=== PATIENT | female | born 1945 | race Caucasian/White ===

== ENCOUNTER 2017-04-11 07:07 | Emergency (ER) | payer MEDICARE ==
[~2017-04-11] VITALS: Ht 152.4 cm; Wt 70.0 kg
[~2017-04-11 07:07] MED LIST: FURO40TA OR; K-TA10TA5 PO; MEVA40TA PO; MONT10 PO; OCUVTAB PO; OMEP20CA5 PO; OMEP20TA OR; PRED5TAB PO; PROM25SU8 PO
[2017-04-11 07:10] VITALS: BP 139/90; PULSE 113; RESP 18; TEMP 98.1; O2SAT 92
[2017-04-11] MEDS ORDERED: LOVA40TA PO (07:34)
[2017-04-11] MEDS ORDERED: TRAM50TA PO (07:34)
[2017-04-11] MEDS ORDERED: LISI-519 PO (07:34)
[2017-04-11] MEDS ORDERED: FURO1TAB62 PO (07:34)
[2017-04-11] MEDS ORDERED: K-TA10TA PO (07:34)
[2017-04-11] MEDS ORDERED: MONT10TA4 PO (07:34)
[2017-04-11] MEDS ORDERED: PRED10 PO (07:34)
[2017-04-11] MEDS ORDERED: CHOL1CAP14 PO (07:34)
[2017-04-11] MEDS ORDERED: RANI300T PO (07:34)
[2017-04-11] MEDS ORDERED: ALBU0.63 NEB (07:34)
[2017-04-11 07:45] VITALS: O2SAT 95
[2017-04-11] MEDS ORDERED: SODIUM CHLORIDE 0.9% FLUSH 10 ML FLUSH IV FLUSH PRN (07:45)
[2017-04-11 07:50] LABS: AUTOMATED NEUTROPHIL # 9.2 TH/MM3 (1.8-7.7); BASOPHIL # 0.1 TH/MM3 (0-0.2); BASOPHIL % 0.6 % (0.0-2.0); EOSINOPHIL # 0.3 TH/MM3 (0-0.4); EOSINOPHIL % 2.3 % (0.0-4.0); HEMATOCRIT 42.6 % (35.0-46.0); LYMPH % 6.9 % (9.0-44.0); LYMPHOCYTE # 0.8 TH/MM3 (1.0-4.8); MEAN CELL VOLUME 84.6 FL (80.0-100.0); MEAN CORPUSCULAR HEMOGLOBIN 27.9 PG (27.0-34.0); MONO % 6.5 % (0.0-8.0); NEUT % 83.7 % (16.0-70.0); PLATELET COUNT 302 TH/MM3 (150-450); RED BLOOD COUNT 5.04 MIL/MM3 (4.00-5.30); RED CELL DISTRIBUTION WIDTH 15.6 % (11.6-17.2); WHITE BLOOD COUNT 11.1 TH/MM3 (4.0-11.0)
[2017-04-11 07:52] LABS: HEMO FLAGS DIFF FINAL
[2017-04-11 07:58] LABS: CHLORIDE 107 MEQ/L (98-107); POTASSIUM 4.1 MEQ/L (3.5-5.1); SODIUM (NA) 143 MEQ/L (136-145)
[2017-04-11 08:01] LABS: ANION GAP 4 MEQ/L (5-15)
[2017-04-11 08:02] LABS: APTT (PATIENT) 27.3 SEC (24.3-30.1); BLOOD UREA NITROGEN 16 MG/DL (7-18); PROTHROMBIN TIME - PATIENT 10.5 SEC (9.8-11.6)
[2017-04-11 08:04] LABS: ALT (GPT) 22 U/L (10-53); AST (GOT) 22 U/L (15-37); GLOMERULAR FILTRATION RATE 62 ML/MIN (>89)
[2017-04-11 08:06] LABS: TOTAL BILIRUBIN ADULT 0.3 MG/DL (0.2-1.0)
[2017-04-11 08:07] LABS: ALKALINE PHOSPHATASE 70 U/L (45-117)
--- NOTE | 2017-04-11 08:11 | PD ---
HPI Chief Complaint: GI Complaint Time Seen by Provider: 07:38 Travel History International Travel<30 days: No Contact w/Intl Traveler<30days: No Traveled to known affect area: No History of Present Illness HPI 72 year old female presenting with three episodes of rectal bleeding that started about 6 hours ago. She felt the urge to have a bowel movement this morning and passed bright red blood into the bowl without passing any stool. Associated symptoms include lower abdominal cramping. She denies light headedness, fever, chills, nausea, vomiting, dysuria, hematuria, and difficulty breathing beyond her baseline. She states that she has been diagnosed with diverticulosis and does have hemorrhoids but has never had abdominal surgery or diverticulitis. She is not taking any anticoagulants but is taking steroids for sarcoidosis. PFSH Past Medical History Hx Anticoagulant Therapy: No Arthritis: Yes Autoimmune Disease: Yes (SARCOIDOSIS) Cancer: No Cardiovascular Problems: Yes (HTN) High Cholesterol: Yes Diabetes: No Diminished Hearing: No Endocrine: No GERD: Yes Genitourinary: No Hepatitis: No Hiatal Hernia: No Hypertension: Yes Immune Disorder: No Medical other: Yes (HX OF BLEEDING ULCER; BILATERAL KNEE PAIN) Neurologic: No Reproductive: No Respiratory: Yes (CHRONIC LUNG ISSUES O2 DEPENDANT) Thyroid Disease: No Tetanus Vaccination: > 5 Years Influenza Vaccination: Yes ?: Not Menopausal: Yes Past Surgical History Abdominal Surgery: No Cardiac Surgery: No Ear Surgery: No Endocrine Surgery: No Eye Surgery: Yes (left eye cataract removal) Genitourinary Surgery: Yes (ANAL FISSURE 1993) Gynecologic Surgery: No Oral Surgery: Yes (TONSILECTOMY 1955) Pacemaker: No Thoracic Surgery: Yes (LUNG BIOPSY 1993) Tonsillectomy: Yes Other Surgery: Yes Social History Alcohol Use: Yes (RARE) Tobacco Use: No Substance Use: No Allergies-Medications (Allergen,Severity, Reaction): Coded Allergies: No Known Allergies (Verified , 04/11/17) Reported Meds & Prescriptions Reported Meds & Active Scripts Active Bentyl (Dicyclomine HCl) 10 Mg Cap 10 Mg PO BID PRN Reported Ranitidine (Ranitidine HCl) 300 Mg Tab 300 Mg PO DAILY D3 Maximum Strength (Cholecalciferol) 5,000 Unit Cap 1,000 Units PO DAILY Lovastatin 40 Mg Tab 40 Mg PO DAILY Lisinopril 5 Mg Tab 5 Mg PO DAILY Lasix (Furosemide) 20 Mg Tab 20 Mg PO DAILY Montelukast (Montelukast Sodium) 10 Mg Tab 10 Mg PO HS Tramadol (Tramadol HCl) 50 Mg Tab 50 Mg PO Q6H PRN Prednisone 10 Mg Tab 10 Mg PO EVERY OTHER DAY K-Tab (Potassium Chloride) 10 Meq Tab 10 Meq PO DAILY Albuterol Neb (Albuterol Sulfate) 0.63 Mg/3 Ml Neb 0.63 Mg NEB QID NEB PRN Review of Systems Except as stated in HPI: all other systems reviewed are Neg General / Constitutional: No: Fever, Chills Respiratory: No: Cough, Shortness of Breath Gastrointestinal: Positive: Abdominal Pain (abdominal cramping), Hematochezia, No: Nausea, Vomiting, Diarrhea Genitourinary: No: Urgency, Frequency, Dysuria, Hematuria Musculoskeletal: No: Myalgias Neurologic: No: Weakness, Dizziness, Syncope Physical Exam Narrative GENERAL: Well nourished, well developed. Sitting comfortably in bed. SKIN: Warm and dry. HEAD: Atraumatic. Normocephalic. EYES: Pupils equal and round. No scleral icterus. No injection or drainage. ENT: No nasal bleeding or discharge. Mucous membranes pink and moist. NECK: Trachea midline. No JVD. CARDIOVASCULAR: Tachycardic. Regular rhythm. RESPIRATORY: No accessory muscle use. Breathing comfortably. Bilateral wheezes on auscultation. Breath sounds equal bilaterally. GASTROINTESTINAL: Abdomen soft, non-tender, nondistended. Hepatic and splenic margins not palpable. RECTAL exam: There is some minimal blood mixed with mucus. She has an isolated hemorrhoid which is nonthrombosed and the 7 o'clock position, pea-sized. Nontender. No active bleeding from the hemorrhoid. No rectal fissure felt. MUSCULOSKELETAL: Extremities without clubbing, cyanosis, or edema. No obvious deformities. NEUROLOGICAL: Awake and alert. No obvious cranial nerve deficits. Motor grossly within normal limits. Five out of 5 muscle strength in the arms and legs. Normal speech. PSYCHIATRIC: Appropriate mood and affect; insight and judgment normal. Data Data Last Documented VS Vital Signs Date Time Temp Pulse Resp B/P Pulse Ox O2 Delivery O2 Flow Rate FiO2 04/11/17 08:35 108 18 170/101 95 Nasal Cannula 3.5 04/11/17 07:10 98.1 Orders Complete Blood Count With Diff (04/11/17 07:38) Comprehensive Metabolic Panel (04/11/17 07:38) Lipase (04/11/17 07:38) Prothrombin Time / Inr (Pt) (04/11/17 07:38) Act Partial Throm Time (Ptt) (04/11/17 07:38) Iv Access Insert/Monitor (04/11/17 07:38) Ecg Monitoring (04/11/17 07:38) Oximetry (04/11/17 07:38) Sodium Chloride 0.9% Flush (Ns Flush) (04/11/17 07:45) Labs Laboratory Tests Test 04/11/17 07:45 White Blood Count 11.1 TH/MM3 Red Blood Count 5.04 MIL/MM3 Hemoglobin 14.1 GM/DL Hematocrit 42.6 % Mean Corpuscular Volume 84.6 FL Mean Corpuscular Hemoglobin 27.9 PG Mean Corpuscular Hemoglobin 33.0 % Concent Red Cell Distribution Width 15.6 % Platelet Count 302 TH/MM3 Mean Platelet Volume 8.1 FL Neutrophils (%) (Auto) 83.7 % Lymphocytes (%) (Auto) 6.9 % Monocytes (%) (Auto) 6.5 % Eosinophils (%) (Auto) 2.3 % Basophils (%) (Auto) 0.6 % Neutrophils # (Auto) 9.2 TH/MM3 Lymphocytes # (Auto) 0.8 TH/MM3 Monocytes # (Auto) 0.7 TH/MM3 Eosinophils # (Auto) 0.3 TH/MM3 Basophils # (Auto) 0.1 TH/MM3 CBC Comment DIFF FINAL Differential Comment Prothrombin Time 10.5 SEC Prothromb Time International 1.0 RATIO Ratio Activated Partial 27.3 SEC Thromboplast Time Sodium Level 143 MEQ/L Potassium Level 4.1 MEQ/L Chloride Level 107 MEQ/L Carbon Dioxide Level 32.0 MEQ/L Anion Gap 4 MEQ/L Blood Urea Nitrogen 16 MG/DL Creatinine 0.89 MG/DL Estimat Glomerular Filtration 62 ML/MIN Rate Random Glucose 115 MG/DL Calcium Level 9.7 MG/DL Total Bilirubin 0.3 MG/DL Aspartate Amino Transf 22 U/L (AST/SGOT) Alanine Aminotransferase 22 U/L (ALT/SGPT) Alkaline Phosphatase 70 U/L Total Protein 7.5 GM/DL Albumin 3.4 GM/DL Lipase 97 U/L [facility] Medical Decision Making Medical Screen Exam Complete: Yes Emergency Medical Condition: Yes Differential Diagnosis Diverticular bleed Angiodysplasia Bleeding hemorrhoid Malignancy Narrative Course Patient roomed emergency department, on oxygen appears comfortable. Hemoglobin returns at 14, other labs are reassuring. Discussed with the patient that given internal nature of her bleeding is difficult to quantify how much she is bleeding, she was offered observation to the hospital for consideration of GI consult and colonoscopy. Patient states last time she had a colonoscopy she thought she would never have another one again. Discussed with her that this is certainly her prerogative. She also consider following up outpatient with GI. She is calm and collected very pleasant and she states that she would rather follow up outpatient. Discussed return to ED criteria symptomatic management home. She stable for discharge. Diagnosis Primary Impression: GI bleed Qualified Code: K62.5 - Gastrointestinal hemorrhage associated with anorectal source Med/Other Pt SpecificInfo: Prescription(s) given Scripts Dicyclomine (Bentyl)10 Mg Cap10 Mg PO BID PRN (ABDOMINAL CRAMPING) #20 CAP Ref 0 Prov:Yared Guerin MD 04/11/17 Disposition: 01 DISCHARGE HOME Condition: Stable Yared Guerin MD Apr 11, 2017 08:11
[2017-04-11 08:35] VITALS: BP 170/101; PULSE 108; RESP 18; O2SAT 95
[2017-04-11] MEDS ORDERED: DICY10 PO (08:38)
[2017-04-11] MEDS ORDERED: ZOFR4TAB3 SL (23:20)
== END 2017-04-11 08:59 | disposition home or self-care (01) ==
LOC: PHED 07:07
DX: K62.5 Hemorrhage of anus and rectum (principal); R10.30 Lower abdominal pain, unspecified; I10 Essential (primary) hypertension; E78.00 Pure hypercholesterolemia, unspecified; Z87.19 Personal history of other diseases of the digestive system; Z87.39 Personal history of other diseases of the musculoskeletal system and connective tissue; Z86.2 Personal history of diseases of the blood and blood-forming organs and certain disorders involving the immune mechanism; Z86.79 Personal history of other diseases of the circulatory system; Z87.09 Personal history of other diseases of the respiratory system; D86.9 Sarcoidosis, unspecified; R11.2 Nausea with vomiting, unspecified; R10.32 Left lower quadrant pain; R10.13 Epigastric pain; R00.0 Tachycardia, unspecified; E78.5 Hyperlipidemia, unspecified; Z99.81 Dependence on supplemental oxygen
CPT/HCPCS: 71020; 74177; 80048; 80053; 81001; 83690; 85025; 85610; 85730; 96361; 96374; 96375; 99284; 99285; C9113; J2405; J7040; Q9967

== ENCOUNTER 2017-04-11 18:43 | Emergency (ER) | payer MEDICARE ==
[~2017-04-11] VITALS: Ht 152.4 cm; Wt 78.0 kg
[~2017-04-11 18:43] MED LIST changes: +ALBU0.63 NEB; +CHOL1CAP14 PO; +DICY10 PO; +FURO1TAB62 PO; +K-TA10TA PO; +LISI-519 PO; +LOVA40TA PO; +MONT10TA4 PO; +PRED10 PO; +RANI300T PO; +TRAM50TA PO
[2017-04-11 18:52] VITALS: BP 151/77; PULSE 116; RESP 18; TEMP 98.1; O2SAT 93
[2017-04-11 19:20] VITALS: BP 144/87; PULSE 98; RESP 18; O2SAT 95
[2017-04-11 19:25] VITALS: O2SAT 95
--- NOTE | 2017-04-11 19:44 | PD ---
HPI Chief Complaint: Abdominal Pain Time Seen by Provider: 19:31 Travel History International Travel<30 days: No Contact w/Intl Traveler<30days: No Traveled to known affect area: No History of Present Illness HPI 72-year-old female presents to the emergency department for complaint of frequent episodes of mucoid rectal bleeding. Patient states symptoms began last evening. Patient has noted some left lower quadrant abdominal discomfort and epigastric abdominal discomfort since last evening. Patient denies fever or chills. Patient states that she has had some passage of bright red blood into the toilet without the passage of stool. Discomfort in her abdomen is described as a cramping. There is been no lightheadedness dizziness near- syncope or syncope. Patient's had ongoing nausea with poor oral intake. Patient was seen earlier in the emergency department for rectal bleeding but was felt to be stable for outpatient management returns this time because she has had an episode of vomiting. No bilious emesis no coffee-ground emesis no hematemesis. Patient has been diagnosed with a history of diverticulosis and hemorrhoids in the past. Patient has had attempted colonoscopy by her balance wheel screw hole tapper in the past but was unable to be performed successfully. Patient is followed by Dr. Jerel lara with her balance wheel screw hole tapper and followed by Dr. Edgardo Bell is her primary care provider. Patient denies taking any blood thinning agents. Patient is on chronic steroid therapy for history of sarcoidosis. Patient denies any recent antibiotic use. Current discomfort is 6 -8/10 in intensity. Patient has chronic shortness of breath and is on chronic supplemental oxygen at all times. No increased shortness of breath no chest pain no flank pain. No urinary symptoms. PFSH Past Medical History Narrative Medical Arthritis, sarcoidosis, hypertension, dyslipidemia, GERD, diverticulosis, peptic ulcer disease, left eye cataract surgery anal fissure repair tonsillectomy lung biopsy no tobacco use; nursing notes reviewed Hx Anticoagulant Therapy: No Arthritis: Yes Autoimmune Disease: Yes (SARCOIDOSIS) Cancer: No Cardiovascular Problems: Yes (HTN) High Cholesterol: Yes Diabetes: No Diminished Hearing: No Endocrine: No GERD: Yes Genitourinary: No Hepatitis: No Hiatal Hernia: No Hypertension: Yes Immune Disorder: No Medical other: Yes (HX OF BLEEDING ULCER; BILATERAL KNEE PAIN) Neurologic: No Reproductive: No Respiratory: Yes (CHRONIC LUNG ISSUES O2 DEPENDANT) Thyroid Disease: No Tetanus Vaccination: Unknown Influenza Vaccination: Yes Menopausal: Yes Past Surgical History Abdominal Surgery: No Cardiac Surgery: No Ear Surgery: No Endocrine Surgery: No Eye Surgery: Yes (left eye cataract removal) Genitourinary Surgery: Yes (ANAL FISSURE 1993) Gynecologic Surgery: No Oral Surgery: Yes (TONSILECTOMY 1955) Pacemaker: No Thoracic Surgery: Yes (LUNG BIOPSY 1993) Tonsillectomy: Yes Other Surgery: Yes Social History Alcohol Use: Yes (RARE) Tobacco Use: No Substance Use: No Allergies-Medications (Allergen,Severity, Reaction): Coded Allergies: No Known Allergies (Verified , 04/11/17) Reported Meds & Prescriptions Reported Meds & Active Scripts Active Zofran Odt (Ondansetron Odt) 4 Mg Tab 4 Mg SL Q6HR PRN Bentyl (Dicyclomine HCl) 10 Mg Cap 10 Mg PO BID PRN Reported Ranitidine (Ranitidine HCl) 300 Mg Tab 300 Mg PO DAILY D3 Maximum Strength (Cholecalciferol) 5,000 Unit Cap 1,000 Units PO DAILY Lovastatin 40 Mg Tab 40 Mg PO DAILY Lisinopril 5 Mg Tab 5 Mg PO DAILY Lasix (Furosemide) 20 Mg Tab 20 Mg PO DAILY Montelukast (Montelukast Sodium) 10 Mg Tab 10 Mg PO HS Tramadol (Tramadol HCl) 50 Mg Tab 50 Mg PO Q6H PRN Prednisone 10 Mg Tab 10 Mg PO EVERY OTHER DAY K-Tab (Potassium Chloride) 10 Meq Tab 10 Meq PO DAILY Albuterol Neb (Albuterol Sulfate) 0.63 Mg/3 Ml Neb 0.63 Mg NEB QID NEB PRN Review of Systems Except as stated in HPI: all other systems reviewed are Neg General / Constitutional: No: Fever, Chills HENT: No: Congestion Cardiovascular: No: Chest Pain or Discomfort Respiratory: Positive: Wheezing, No: Shortness of Breath Gastrointestinal: Positive: Nausea, Vomiting, Diarrhea, Abdominal Pain, Hematochezia, Loss of Appetite, No: Hematemesis Genitourinary: No: Urgency, Frequency, Dysuria, Decreased Urinary Output Musculoskeletal: No: Pain Skin: No Rash Neurologic: No: Weakness Psychiatric: No: Anxiety Hematologic/Lymphatic: No: Lymph Node Enlargement Physical Exam Narrative GENERAL: Well-developed well-nourished obese female in no acute distress no respiratory distress SKIN: Warm and dry. HEAD: Normocephalic. EYES: No scleral icterus. No injection or drainage. NECK: Supple, trachea midline. No JVD or lymphadenopathy. CARDIOVASCULAR: Regular rate and rhythm without murmurs, gallops, or rubs. RESPIRATORY: Breath sounds equal bilaterally with few expiratory wheezes. No accessory muscle use. GASTROINTESTINAL: Abdomen soft, minimal diffuse tenderness to palpation without guarding or rebound, nondistended. Rectal exam: Deferred as reportedly performed earlier and was reportedly positive for blood on previous exam earlier today. MUSCULOSKELETAL: No cyanosis, or edema. BACK: Nontender without obvious deformity. No CVA tenderness. Data Data Last Documented VS Vital Signs Date Time Temp Pulse Resp B/P Pulse Ox O2 Delivery O2 Flow Rate FiO2 04/11/17 19:25 95 Nasal Cannula 3.5 04/11/17 19:20 98 18 144/87 04/11/17 18:52 98.1 Orders Basic Metabolic Panel (Bmp) (04/11/17 19:31) Complete Blood Count With Diff (04/11/17 19:31) Urinalysis - C+S If Indicated (04/11/17 19:31) Ct Abd/Pel W Iv Contrast(Rout) (04/11/17 19:31) Iv Access Insert/Monitor (04/11/17 19:31) Ecg Monitoring (04/11/17 19:31) Oximetry (04/11/17 19:31) Ondansetron Inj (Zofran Inj) (04/11/17 19:45) Sodium Chlorid 0.9% 500 Ml Inj (Ns 500 M (04/11/17 19:45) Pantoprazole Inj (Protonix Inj) (04/11/17 19:45) Iohexol 350 Inj (Omnipaque 350 Inj) (04/11/17 20:55) Chest, Pa & Lat (04/11/17 ) Labs Laboratory Tests Test 04/11/17 04/11/17 20:00 20:01 White Blood Count 13.3 TH/MM3 Red Blood Count 4.86 MIL/MM3 Hemoglobin 13.5 GM/DL Hematocrit 40.9 % Mean Corpuscular Volume 84.1 FL Mean Corpuscular Hemoglobin 27.8 PG Mean Corpuscular Hemoglobin 33.1 % Concent Red Cell Distribution Width 15.5 % Platelet Count 287 TH/MM3 Mean Platelet Volume 8.9 FL Neutrophils (%) (Auto) 87.1 % Lymphocytes (%) (Auto) 4.1 % Monocytes (%) (Auto) 5.0 % Eosinophils (%) (Auto) 0.0 % Basophils (%) (Auto) 3.8 % Neutrophils # (Auto) 11.6 TH/MM3 Lymphocytes # (Auto) 0.5 TH/MM3 Monocytes # (Auto) 0.7 TH/MM3 Eosinophils # (Auto) 0.0 TH/MM3 Basophils # (Auto) 0.5 TH/MM3 CBC Comment DIFF FINAL Differential Comment Sodium Level 142 MEQ/L Potassium Level 4.2 MEQ/L Chloride Level 106 MEQ/L Carbon Dioxide Level 29.0 MEQ/L Anion Gap 7 MEQ/L Blood Urea Nitrogen 11 MG/DL Creatinine 0.76 MG/DL Estimat Glomerular Filtration 75 ML/MIN Rate Random Glucose 115 MG/DL Calcium Level 10.0 MG/DL Urine Color YELLOW Urine Turbidity CLEAR Urine pH 6.0 Urine Specific [place] 1.026 Urine Protein 30 mg/dL Urine Glucose (UA) NEG mg/dL Urine Ketones 80 OR GREATER mg/dL Urine Occult Blood NEG Urine Nitrite NEG Urine Bilirubin NEG Urine Leukocyte Esterase NEG Urine RBC 0-3 /hpf Urine WBC 0-2 /hpf Urine Squamous Epithelial 0-5 /hpf Cells Urine Hyaline Casts 3-5 /lpf Urine Mucus OCC /lpf Microscopic Urinalysis Comment CULT NOT INDICATED MDM Medical Decision Making Medical Screen Exam Complete: Yes Emergency Medical Condition: Yes Medical Record Reviewed: Yes Interpretation(s) Last Impressions Abdomen/Pelvis CT 04/11/171930 Signed Impressions: Service Date/Time: Tuesday, April 11, 2017 20:33 - CONCLUSION: 1. Diverticulosis without diverticulitis. 2. Large hernia in the left flank containing peritoneal fat, small and large bowel loops. No signs of obstruction or attenuation. 3. Right renal cyst. 4. Right lower lobe consolidation. PA and lateral views of the chest are recommended. Mike Lara MD CBC & BMP Diagram 04/11/17 20:00 Vital Signs Date Time Temp Pulse Resp B/P Pulse Ox O2 Delivery O2 Flow Rate FiO2 04/11/17 19:25 95 Nasal Cannula 3.5 04/11/17 19:20 98 18 144/87 95 Nasal Cannula 3.5 04/11/17 18:52 98.1 116 18 151/77 93 Nasal Cannula 3.5 Differential Diagnosis Upper GI bleed, lower GI bleed, diverticulitis, colitis, AVM, angiodysplasia, hemorrhoid, malignancy, anemia Narrative Course 72-year-old female seen earlier today for diagnosis of GI bleed of uncertain source returns because of ongoing blood per rectum as well as episode of vomiting with ongoing nausea poor oral intake and worsening abdominal discomfort. Patient earlier underwent rectal exam which reportedly was positive for blood. Patient had stable hemoglobin of 14@earlier visit. Patient presents with tachycardia that was noted earlier but reportedly has a history of chronic mild tachycardia. A repeat hemoglobin will send patient for CT abdomen and pelvis plan: patient will require admission for persistent GI bleed. Patient informed of imaging results in stable hemoglobin; patient has had no further nausea or vomiting after Zofran no discomfort after Protonix and no further episodes of bloody or mucoid rectal bleeding. Patient is desirous of being discharged to home. Patient's imaging study reveals no acute intra- abdominal or pelvic process has diverticulosis and previous hernia unchanged. Patient able to tolerate oral hydration. Patient remains stable and again requests being discharged to home. Extensive conversation with patient and spouse is aware of need to return to the emergency department should she have another episode of red blood per rectum dizziness shortness of breath or any concerns; patient's spouse acknowledge understanding of recommendations associated with discharged to home. Patient given prescription for Zofran is aware that her primary care provider Dr. Edgardo Bell wants to see her in the office tomorrow and that at prescription through her primary will be provided for Protonix. Physician Communication Physician Communication discussed with Dr Newsome; discussed with DR Tellez Diagnosis Primary Impression: GI bleed Additional Impression: Sarcoidosis Referrals: Nicole Newsome MD call for appointment Alison Tellez MD call for appointment call office in the AM per Dr Tellez Patient Instructions: General Instructions Additional Instructions: Recommend clear liquid diet for next 12-24 hours advance as tolerated to bland diet then regular diet as tolerated Follow-up with Dr. Beltrán to your gastrologist Follow-up with Dr. Garcia her primary care provider Recommend use of Zofran prescribed as needed for nausea and/or vomiting Return to the emergency department for any concerns or change in condition Continue chronic medications as presently prescribed Med/Other Pt SpecificInfo: Prescription(s) given Scripts Ondansetron Odt (Zofran Odt)4 Mg Tab4 Mg SL Q6HR PRN (Nausea/Vomiting) #10 TAB Ref 0 Prov:Zulay Green MD 04/11/17 Disposition: 01 DISCHARGE HOME Condition: Stable Zulay Green MD Apr 11, 2017 19:44
[2017-04-11] MEDS ORDERED: ONDANSETRON HCL 4 MG/2 ML VIAL IVP ONE (19:45)
[2017-04-11] MEDS ORDERED: PANTOPRAZOLE SODIUM 40 MG VIAL IV PUSH ONE (19:45)
[2017-04-11] MEDS ORDERED: SODIUM CHLORID 0.9% 500 ML INJ 500 ML IV ONE (19:45)
[2017-04-11 20:28] LABS: BLOOD, URINE NEG (NEG); GLUCOSE,URINE NEG (NEG); NITRITE,URINE NEG (NEG)
[2017-04-11 20:29] LABS: AUTOMATED NEUTROPHIL # 11.6 TH/MM3 (1.8-7.7); BASOPHIL # 0.5 TH/MM3 (0-0.2); BASOPHIL % 3.8 % (0.0-2.0); HEMATOCRIT 40.9 % (35.0-46.0); HEMO FLAGS DIFF FINAL; LYMPH % 4.1 % (9.0-44.0); LYMPHOCYTE # 0.5 TH/MM3 (1.0-4.8); MEAN CELL VOLUME 84.1 FL (80.0-100.0); MEAN CORPUSCULAR HEMOGLOBIN 27.8 PG (27.0-34.0); MEAN CORPUSCULAR HGB CONC 33.1 % (32.0-36.0); NEUT % 87.1 % (16.0-70.0); PLATELET COUNT 287 TH/MM3 (150-450); RED BLOOD COUNT 4.86 MIL/MM3 (4.00-5.30); RED CELL DISTRIBUTION WIDTH 15.5 % (11.6-17.2); WHITE BLOOD COUNT 13.3 TH/MM3 (4.0-11.0)
[2017-04-11 20:30] VITALS: BP 146/82; PULSE 101; RESP 19; O2SAT 96
[2017-04-11 20:39] LABS: POTASSIUM 4.2 MEQ/L (3.5-5.1)
[2017-04-11 20:42] LABS: KETONE, URINE 80 OR GREATER mg/dL (NEG)
[2017-04-11 20:43] LABS: URINE COLOR YELLOW (YELLW/STRAW)
[2017-04-11 20:44] LABS: MUCUS URINE OCC /lpf (OCC); SQUAMOUS EPITHELIAL CELL URINE 0-5 /hpf (0-5)
[2017-04-11 20:45] LABS: COMMENT (UR) CULT NOT INDICATED; CULTURE IF INDICATED CULT NOT INDICATED; RBC, URINE 0-3 /hpf (0-3); WBC, URINE 0-2 /hpf (0-5)
[2017-04-11] MEDS ORDERED: IOHEXOL 350 MG/ML 10 ML VIAL (for RAD DIAG) IV ONE (20:55)
--- NOTE | 2017-04-11 21:05 | RADRPT ---
EXAM DATE/TIME: 04/11/2017 20:33 [facility] COMPARISON: No previous studies available for comparison. INDICATIONS : Epigastric and left lowe quadrant pain. Rectal bleeding. IV CONTRAST: 100 cc Omnipaque 350 (iohexol) IV ORAL CONTRAST: No oral contrast ingested. RADIATION DOSE: 17.63 CTDIvol (mGy) MEDICAL HISTORY : Gastroesophageal reflux disease. Hypertension. Respiratory disease. History of anal fissure. SURGICAL HISTORY : None. ENCOUNTER: Initial ACUITY: 3 days PAIN SCALE: 8/10 LOCATION: Left lower quadrant epigastric. TECHNIQUE: Volumetric scanning of the abdomen and pelvis was performed. Using automated exposure control and ad justment of the mA and/or kV according to patient size, radiation dose was kept as low as reasonably achievable to obtain optimal diagnostic quality images. DICOM format image data is available electro nically for review and comparison. FINDINGS: LOWER LUNGS: The visualized lower lungs are clear. LIVER: Homogeneous density without lesion. There is no dilation of the biliary tree. No calcified gallston es. SPLEEN: Normal size without lesion. PANCREAS: Within normal limits. KIDNEYS: Normal in size and shape. There is no mass, stone or hydronephrosis. Right renal low-density. ADRENAL GLANDS: Within normal limits. VASCULAR: There is no aortic aneurysm. BOWEL/MESENTERY: Due to cysts without diverticulitis. There is no free intraperitoneal air or fluid. ABDOMINAL WALL: There is hernia posteriorly in the left flank just below the level of the left kidney containing desc ending colon, small bowel loops and retroperitoneal fat. RETROPERITONEUM: There is no lymphadenopathy. BLADDER: No wall thickening or mass. REPRODUCTIVE: Within normal limits. INGUINAL: There is no lymphadenopathy or hernia. MUSCULOSKELETAL: Within normal limits for patient age. CONCLUSION: 1. Diverticulosis without diverticulitis. 2. Large hernia in the left flank containing peritoneal fat, small and large bowel loops. No signs of obstruction or attenuation. 3. Right renal cyst. 4. Right lower lobe consolidation. PA and lateral views of the chest are recommended. Mike Lara MD on April 11, 2017 at 21:01 Board Certified Radiologist. This report was verified electronically.
[2017-04-11 22:10] VITALS: BP 107/66; PULSE 99; RESP 19; O2SAT 96
--- NOTE | 2017-04-11 23:14 | RADRPT ---
EXAM DATE/TIME: 04/11/2017 22:42 [facility] COMPARISON: CT ABDOMEN & PELVIS W CONTRAST, April 11, 2017, 20:33. CHEST SINGLE AP, October 09, 2013, 5:08. INDICATIONS : Shortness of breath. MEDICAL HISTORY : Hypertension. Respiratory disease. SURGICAL HISTORY : None. ENCOUNTER: Initial ACUITY: 1 day PAIN SCORE: 0/10 LOCATION: Bilateral chest FINDINGS: Frontal and lateral views of the chest demonstrate cardiac silhouette size at the upper limits for no rmal. There are abnormal perihilar and lower lung zone interstitial and airspace opacities bilaterall y in a symmetric distribution. No pneumothorax is visualized. No pleural effusion is appreciated. The re are calcified nodules at the left lung base. Bones and soft tissues demonstrate no acute finding. There is colon gas displaced into the left lateral soft tissues the. Recent CT documented a hernia in this location. CONCLUSION: Chronic and mildly increased perihilar and lower lung zone interstitial and airspace opacities bilate rally. These findings could represent pulmonary edema in the appropriate clinical setting. Given the appearance of the lung bases on the recent CT chronic interstitial process should also be considered. Lele Cooper MD on April 11, 2017 at 23:10 Board Certified Radiologist. This report was verified electronically.
[2017-04-11] MEDS ORDERED: ZOFR4TAB3 SL (23:20)
[2017-04-11 23:52] VITALS: BP 127/72
== END 2017-04-11 23:57 | disposition home or self-care (01) ==
LOC: PHED 18:43
DX: K62.5 Hemorrhage of anus and rectum (principal); D86.9 Sarcoidosis, unspecified; R11.2 Nausea with vomiting, unspecified; R10.32 Left lower quadrant pain; R10.13 Epigastric pain; R00.0 Tachycardia, unspecified; I10 Essential (primary) hypertension; E78.5 Hyperlipidemia, unspecified; Z99.81 Dependence on supplemental oxygen; Z87.39 Personal history of other diseases of the musculoskeletal system and connective tissue; Z86.2 Personal history of diseases of the blood and blood-forming organs and certain disorders involving the immune mechanism; Z87.19 Personal history of other diseases of the digestive system; Z86.79 Personal history of other diseases of the circulatory system; Z87.09 Personal history of other diseases of the respiratory system
CPT/HCPCS: 71020; 74177; 80048; 81001; 85025; 96361; 96374; 96375; 99285; C9113; J2405; J7040; Q9967

== ENCOUNTER 2018-01-23 17:20 | Emergency (ER) | payer MEDICARE ==
[2018-01-23] VITALS (12 sets, daily range): BP systolic 97–133; BP diastolic 55–75; PULSE 104–114; RESP 20–22; TEMP 98.9; O2SAT 80–96
[~2018-01-23 17:20] MED LIST changes: -CHOL1CAP14 PO; +D 50CAP2 PO; -FURO40TA OR; -K-TA10TA5 PO; -MEVA40TA PO; -MONT10 PO; -OCUVTAB PO; -OMEP20CA5 PO; -OMEP20TA OR; -PRED5TAB PO; -PROM25SU8 PO; +ZOFR4TAB3 SL
--- NOTE | 2018-01-23 17:57 | PD ---
HPI Chief Complaint: General Weakness Time Seen by Provider: 17:36 Travel History International Travel<30 days: No Contact w/Intl Traveler<30days: No Traveled to known affect area: No History of Present Illness HPI The patient 72. She reports coming to the ER because she was in her chair at home and was unable to get out of it due to both chronic knee pain and a new total body spasms type sensation. She has not had similar spasms before. In the ED there is no spasm activity. The patient does report some shortness of breath which is worse in the mornings and dyspnea on exertion however this is chronic. She has no chest pain, fever, nausea or vomiting. She reports a change in her albuterol inhaler dose recently however denies any Change in medication or lifestyle recently otherwise. PFSH Past Medical History Hx Anticoagulant Therapy: No Arthritis: Yes Autoimmune Disease: Yes (SARCOIDOSIS) Cancer: No Cardiovascular Problems: Yes (HTN) High Cholesterol: Yes Diabetes: No Diminished Hearing: No Endocrine: No GERD: Yes Genitourinary: No Hepatitis: No Hiatal Hernia: No Hypertension: Yes Immune Disorder: No Neurologic: No Reproductive: No Respiratory: Yes (CHRONIC LUNG ISSUES O2 DEPENDANT) Thyroid Disease: No ?: Not Menopausal: Yes Past Surgical History Abdominal Surgery: No Cardiac Surgery: No Ear Surgery: No Endocrine Surgery: No Eye Surgery: Yes (left eye cataract removal) Genitourinary Surgery: Yes (ANAL FISSURE 1993) Gynecologic Surgery: No Oral Surgery: Yes (TONSILECTOMY 1955) Pacemaker: No Thoracic Surgery: Yes (LUNG BIOPSY 1993) Tonsillectomy: Yes Other Surgery: Yes Social History Alcohol Use: Yes (RARE) Tobacco Use: No Substance Use: No Allergies-Medications (Allergen,Severity, Reaction): Coded Allergies: No Known Allergies (Verified Adverse Reaction, Unknown, 01/23/18) Reported Meds & Prescriptions Reported Meds & Active Scripts Active Reported Lovastatin 40 Mg Tab 40 Mg PO DAILY Lisinopril 5 Mg Tab 5 Mg PO DAILY Lasix (Furosemide) 20 Mg Tab 20 Mg PO DAILY Montelukast (Montelukast Sodium) 10 Mg Tab 10 Mg PO HS Tramadol (Tramadol HCl) 50 Mg Tab 50 Mg PO Q6H PRN Prednisone 10 Mg Tab 10 Mg PO EVERY OTHER DAY K-Tab (Potassium Chloride) 10 Meq Tab 10 Meq PO DAILY Albuterol Neb (Albuterol Sulfate) 0.63 Mg/3 Ml Neb 0.63 Mg NEB QID NEB PRN Review of Systems Except as stated in HPI: all other systems reviewed are Neg General / Constitutional: No: Fever Eyes: No: Diploplia Cardiovascular: No: Chest Pain or Discomfort, Diaphoresis Physical Exam Narrative GENERAL: 72 yo F, speaking sentences, mild distress Vital Signs Date Time Temp Pulse Resp B/P (MAP) Pulse Ox O2 Delivery O2 Flow Rate FiO2 01/23/18 17:22 98.9 112 20 132/73 (92) 90 SKIN: Warm and dry. HEAD: Atraumatic. Normocephalic. EYES: Pupils equal and round. No scleral icterus. No injection or drainage. ENT: No nasal bleeding or discharge. Mucous membranes pink and moist. NECK: Trachea midline. No JVD. CARDIOVASCULAR: Tachycardia. Regular rhythm. RESPIRATORY: No accessory muscle use. Clear to auscultation. Breath sounds equal bilaterally. GASTROINTESTINAL: Abdomen soft, non-tender, nondistended. Hepatic and splenic margins not palpable. MUSCULOSKELETAL: Extremities without clubbing, cyanosis, or edema. No obvious deformities. NEUROLOGICAL: Awake and alert. No obvious cranial nerve deficits. Motor grossly within normal limits. Five out of 5 muscle strength in the arms and legs. Normal speech. PSYCHIATRIC: Appropriate mood and affect; insight and judgment normal. Data Data Last Documented VS Vital Signs Date Time Temp Pulse Resp B/P (MAP) Pulse Ox O2 Delivery O2 Flow Rate FiO2 01/23/18 18:45 106 20 118/66 (83) 96 Nasal Cannula 5.00 01/23/18 17:22 98.9 Orders Orders Complete Blood Count With Diff (01/23/18 17:47) Comprehensive Metabolic Panel (01/23/18 17:47) Urinalysis - C+S If Indicated (01/23/18 17:47) Chest, Single Ap (01/23/18 17:47) Ecg Monitoring (01/23/18 17:47) Iv Access Insert/Monitor (01/23/18 17:47) Oximetry (01/23/18 17:47) Sodium Chloride 0.9% Flush (Ns Flush) (01/23/18 18:00) Arterial Blood Gas (Abg) (01/23/18 ) Electrocardiogram (01/23/18 ) Potassium, Serum (K) (01/23/18 21:57) Labs Laboratory Tests Test 01/23/18 18:20 White Blood Count 10.4 TH/MM3 Red Blood Count 4.70 MIL/MM3 Hemoglobin 13.1 GM/DL Hematocrit 41.8 % Mean Corpuscular Volume 88.9 FL Mean Corpuscular Hemoglobin 27.8 PG Mean Corpuscular Hemoglobin Concent 31.3 % Red Cell Distribution Width 14.5 % Platelet Count 292 TH/MM3 Mean Platelet Volume 9.5 FL Neutrophils (%) (Auto) 81.5 % Lymphocytes (%) (Auto) 5.8 % Monocytes (%) (Auto) 7.4 % Eosinophils (%) (Auto) 0.3 % Basophils (%) (Auto) 5.0 % Neutrophils # (Auto) 8.5 TH/MM3 Lymphocytes # (Auto) 0.6 TH/MM3 Monocytes # (Auto) 0.8 TH/MM3 Eosinophils # (Auto) 0.0 TH/MM3 Basophils # (Auto) 0.5 TH/MM3 CBC Comment DIFF FINAL Differential Comment Blood Urea Nitrogen 20 MG/DL Creatinine 0.77 MG/DL Random Glucose 106 MG/DL Total Protein 7.8 GM/DL Albumin 3.4 GM/DL Calcium Level 10.0 MG/DL Alkaline Phosphatase 79 U/L Aspartate Amino Transf (AST/SGOT) 35 U/L Alanine Aminotransferase (ALT/SGPT) 31 U/L Total Bilirubin 0.4 MG/DL Sodium Level 138 MEQ/L Potassium Level 5.4 MEQ/L Chloride Level 95 MEQ/L Carbon Dioxide Level 40.3 MEQ/L Anion Gap 3 MEQ/L Estimat Glomerular Filtration Rate 74 ML/MIN [facility] Medical Decision Making Medical Screen Exam Complete: Yes Emergency Medical Condition: Yes Medical Record Reviewed: Yes Differential Diagnosis electrolyte imbalance, anemia, UTI, polypharmacy Narrative Course CBC & BMP Diagram 01/23/18 18:20 Total Protein 7.8, Albumin 3.4, Calcium Level 10.0, Alkaline Phosphatase 79, Aspartate Amino Transf (AST/SGOT) 35, Alanine Aminotransferase (ALT/SGPT) 31, Total Bilirubin 0.4 Patient sitting upright in bed somewhat comfortably at 6:50 PM. The urinalysis is pending. There is a unexpected increasing carbon dioxide with a resultant 40s. An ABG was added on. The patient received Kayexalate and calcium. An EKG was added on. Case discussed with Dr. Velazquez to follow up and disposition patient. Med/Other Pt SpecificInfo: No Change to Meds Disposition: 01 DISCHARGE HOME Condition: Stable Bossman Olivas MD January 23, 2018 17:57
[2018-01-23] MEDS ORDERED: SODIUM CHLORIDE 0.9% FLUSH 10 ML FLUSH IV FLUSH PRN (18:00)
--- NOTE | 2018-01-23 18:06 | RADRPT ---
EXAM DATE/TIME: 01/23/2018 17:50 [facility] COMPARISON: CHEST PA & LAT, April 11, 2017, 22:42. INDICATIONS : Short of breath MEDICAL HISTORY : sarcoidosis SURGICAL HISTORY : None. ENCOUNTER: Initial ACUITY: 2 days PAIN SCORE: 0/10 LOCATION: Bilateral chest FINDINGS: Chronic or recurrent acute perihilar and bibasilar interstitial markings are noted. The heart is enla rged. CONCLUSION: Chronic or recurrent acute perihilar and bibasilar interstitial markings. Cardiomegaly. Yared Chavez MD on January 23, 2018 at 18:02 Board Certified Radiologist. This report was verified electronically.
[2018-01-23 18:39] LABS: AUTOMATED NEUTROPHIL # 8.5 TH/MM3 (1.8-7.7); BASOPHIL # 0.5 TH/MM3 (0-0.2); EOSINOPHIL % 0.3 % (0.0-4.0); HEMATOCRIT 41.8 % (35.0-46.0); HEMOGLOBIN 13.1 GM/DL (11.6-15.3); LYMPH % 5.8 % (9.0-44.0); LYMPHOCYTE # 0.6 TH/MM3 (1.0-4.8); MEAN CELL VOLUME 88.9 FL (80.0-100.0); MEAN CORPUSCULAR HEMOGLOBIN 27.8 PG (27.0-34.0); MEAN CORPUSCULAR HGB CONC 31.3 % (32.0-36.0); MEAN PLATELET VOLUME 9.5 FL (7.0-11.0); MONO % 7.4 % (0.0-8.0); MONOCYTE # 0.8 TH/MM3 (0-0.9); NEUT % 81.5 % (16.0-70.0); PLATELET COUNT 292 TH/MM3 (150-450); RED CELL DISTRIBUTION WIDTH 14.5 % (11.6-17.2); WHITE BLOOD COUNT 10.4 TH/MM3 (4.0-11.0)
[2018-01-23 18:40] LABS: CHLORIDE 95 MEQ/L (98-107); SODIUM (NA) 138 MEQ/L (136-145)
[2018-01-23 18:44] LABS: ALBUMIN 3.4 GM/DL (3.4-5.0); BICARBONATE 40.3 MEQ/L (21.0-32.0); BLOOD UREA NITROGEN 20 MG/DL (7-18); GLUCOSE,RANDOM 106 MG/DL (74-106)
[2018-01-23 18:47] LABS: ALT (GPT) 31 U/L (10-53); AST (GOT) 35 U/L (15-37); CREATININE 0.77 MG/DL (0.50-1.00); GLOMERULAR FILTRATION RATE 74 ML/MIN (>89)
[2018-01-23 18:49] LABS: TOTAL BILIRUBIN ADULT 0.4 MG/DL (0.2-1.0); TOTAL PROTEIN 7.8 GM/DL (6.4-8.2)
[2018-01-23 18:50] LABS: ALKALINE PHOSPHATASE 79 U/L (45-117)
[2018-01-23] MEDS ORDERED: CALCIUM GLUCONATE 10% 1 GM/10 ML VIAL SLOW IVP ONE (19:00)
[2018-01-23] MEDS ORDERED: SODIUM POLYSTYRENE SULFONATE SUSP 15 GM/60 ML CUP PO ONE (19:00)
[2018-01-23 19:30] LABS: BLOOD, URINE NEG (NEG); GLUCOSE,URINE NEG (NEG); KETONE, URINE NEG (NEG); NITRITE,URINE NEG (NEG); PH, URINE 5.5 (5.0-8.5); URINE COLOR YELLOW (YELLW/STRAW); URINE LEUKOCYTE ESTERASE NEG (NEG)
[2018-01-23] MEDS ORDERED: FUROSEMIDE 100 MG/10 ML VIAL IV PUSH ONE (19:30)
[2018-01-23 19:35] LABS: BILIRUBIN, URINE NEG (NEG); RBC, URINE 0-2 /hpf (0-3)
[2018-01-23] MEDS ORDERED: CALCIUM GLUCONATE INJ 1 GM in SODIUM CHLORIDE 0.9% INJ 100 ML IV ONE (19:45)
--- NOTE | 2018-01-23 20:30 | PD ---
Physical Exam Time Seen by Provider: 20:[address] Olivas left this patient with me to likely admit. Data Data Last Documented VS Vital Signs Date Time Temp Pulse Resp B/P (MAP) Pulse Ox O2 Delivery O2 Flow Rate FiO2 01/23/18 18:45 106 20 118/66 (83) 96 Nasal Cannula 5.00 01/23/18 17:22 98.9 Orders Orders Complete Blood Count With Diff (01/23/18 17:47) Comprehensive Metabolic Panel (01/23/18 17:47) Urinalysis - C+S If Indicated (01/23/18 17:47) Chest, Single Ap (01/23/18 17:47) Ecg Monitoring (01/23/18 17:47) Iv Access Insert/Monitor (01/23/18 17:47) Oximetry (01/23/18 17:47) Sodium Chloride 0.9% Flush (Ns Flush) (01/23/18 18:00) Arterial Blood Gas (Abg) (01/23/18 ) Electrocardiogram (01/23/18 ) Potassium, Serum (K) (01/23/18 21:57) Calcium Gluconate Inj (Calcium Gluconate (01/23/18 19:00) Sodium Polysty Sulfate Liq (Kayexalate L (01/23/18 19:00) Furosemide Inj (Lasix Inj) (01/23/18 19:30) Calcium Gluconate Inj (Calcium Gluconate (01/23/18 19:45) Code Status (01/23/18 20:30) B-Type Natriuretic Peptide (01/23/18 20:34) Labs Laboratory Tests Test 01/23/18 18:20 01/23/18 18:56 01/23/18 19:20 White Blood Count 10.4 TH/MM3 Red Blood Count 4.70 MIL/MM3 Hemoglobin 13.1 GM/DL Hematocrit 41.8 % Mean Corpuscular Volume 88.9 FL Mean Corpuscular Hemoglobin 27.8 PG Mean Corpuscular Hemoglobin Concent 31.3 % Red Cell Distribution Width 14.5 % Platelet Count 292 TH/MM3 Mean Platelet Volume 9.5 FL Neutrophils (%) (Auto) 81.5 % Lymphocytes (%) (Auto) 5.8 % Monocytes (%) (Auto) 7.4 % Eosinophils (%) (Auto) 0.3 % Basophils (%) (Auto) 5.0 % Neutrophils # (Auto) 8.5 TH/MM3 Lymphocytes # (Auto) 0.6 TH/MM3 Monocytes # (Auto) 0.8 TH/MM3 Eosinophils # (Auto) 0.0 TH/MM3 Basophils # (Auto) 0.5 TH/MM3 CBC Comment DIFF FINAL Differential Comment Blood Urea Nitrogen 20 MG/DL Creatinine 0.77 MG/DL Random Glucose 106 MG/DL Total Protein 7.8 GM/DL Albumin 3.4 GM/DL Calcium Level 10.0 MG/DL Alkaline Phosphatase 79 U/L Aspartate Amino Transf (AST/SGOT) 35 U/L Alanine Aminotransferase (ALT/SGPT) 31 U/L Total Bilirubin 0.4 MG/DL Sodium Level 138 MEQ/L Potassium Level 5.4 MEQ/L Chloride Level 95 MEQ/L Carbon Dioxide Level 40.3 MEQ/L Anion Gap 3 MEQ/L Estimat Glomerular Filtration Rate 74 ML/MIN Blood Gas Puncture Site RT RADIAL Blood Gas Patient Temperature 98.6 Blood Gas HCO3 43 mmol/L Blood Gas Base Excess 15.8 mmol/L Blood Gas Oxygen Saturation 92 % Arterial Blood pH 7.31 Arterial Blood Partial Pressure CO2 87 mmHG Arterial Blood Partial Pressure O2 72 mmHG Arterial Blood Oxygen Content 16.9 Vol % Arterial Blood Carboxyhemoglobin 1.5 % Arterial Blood Methemoglobin 1.2 % Blood Gas Hemoglobin 13.0 G/DL Oxygen Delivery Device NASAL CANNULA Blood Gas Liter Flow 5 L/M Urine Color YELLOW Urine Turbidity CLEAR Urine pH 5.5 Urine Specific [place] GREATER/EQUAL 1.030 Urine Protein 30 mg/dL Urine Glucose (UA) NEG mg/dL Urine Ketones NEG mg/dL Urine Occult Blood NEG Urine Nitrite NEG Urine Bilirubin NEG Urine Urobilinogen 0.2 MG/DL Urine Leukocyte Esterase NEG Urine RBC 0-2 /hpf Urine WBC 3-5 /hpf Urine Squamous Epithelial Cells 6-8 /hpf Urine Bacteria NONE /hpf Microscopic Urinalysis Comment CULT NOT INDICATED MDM Medical Record Reviewed: Yes Supervised Visit with EMELY: No Differential Diagnosis COPD with acute exacerbation, hypoxemia, hypercarbia, end-stage COPD, DNR status Narrative Course The patient tells me that she does not want to be resuscitated. She will sign the form. 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 The patient also refuses BiPAP. The patient understands the need and technique of endotracheal intubation and refuses this. The patient is alert and competent to make decisions. The patient argued eloquently with her who did not want her to go into DNR status. She states to her that they discuss this before and they had agreed on DNR status. The patient now states she will sign out AGAINST MEDICAL ADVICE. With a DNR status there is actually very little we could do in the hospital for the patient anyway. Dr. Moura was called [facility] but does not consult on this hospital and does not see patients in this hospital. Physician Communication Physician Communication I discussed the patient with Dr. Moura and Dr. Damir alves from [facility]. Additional Instruction: As we discussed, intubation, BiPAP are the things we would likely do in the hospital if you were not a DNR status. Talk over the possibility of hospice with Dr. Edgardo Bell on Wednesday. Disposition: 07 AGAINST MEDICAL ADVICE Condition: Stable Jorje Velazquez MD January 23, 2018 20:30
--- NOTE | 2018-01-24 10:14 | EKG ---
Date Performed: 01/23/2018 Time Performed: 19:10:33 PTAGE: 72 years EKG: SINUS TACHYCARDIA WITH SHORT OK INTERVAL POSSIBLE LEFT ATRIAL ENLARGEMENT INCOMPLETE RIGHT BUNDLE BRANCH BLOCK RIGHT VENTRICULAR HYPERTROPHY AND ST-T CHANGE POSSIBLE INFERIOR MYOCARDIAL INFARC TION ABNORMAL ECG PREVIOUS TRACING : 10/09/2013 04.58 Nonspecific anterior T-wave changes, consider anterior isch emia. Compared to prior study, right axis deviation and nonspecific T-wave changes are now present. DOCTOR: Gianluca Feliz Interpretating Date/Time 01/24/2018 10:13:06
== END 2018-01-23 21:58 | disposition left against medical advice (07) ==
LOC: PHED 17:20
DX: Z53.29 Procedure and treatment not carried out because of patient's decision for other reasons (principal); R06.89 Other abnormalities of breathing; R00.0 Tachycardia, unspecified; D86.9 Sarcoidosis, unspecified; I10 Essential (primary) hypertension; E78.00 Pure hypercholesterolemia, unspecified; Z99.81 Dependence on supplemental oxygen; Z79.899 Other long term (current) drug therapy
CPT/HCPCS: 36600; 71045; 80053; 81001; 82805; 85025; 93005; 96365; 96375; 99285; J0610; J1940

== ENCOUNTER 2018-01-25 16:28 | Inpatient (IN) | payer MEDICARE ==
[~2018-01-25] VITALS: Ht 160 cm; Wt 85.0 kg
[2018-01-25] VITALS (8 sets, daily range): BP systolic 101–130; BP diastolic 59–72; PULSE 100–118; RESP 18–33; TEMP 98.7; O2SAT 90–96
[2018-01-25] MEDS ORDERED: FUROSEMIDE 40 MG/4 ML VIAL IV PUSH ONE (17:00)
[2018-01-25] MEDS ORDERED: methylPREDNISolone SOD SUCC 125 MG/2 ML VIAL IV PUSH ONE (17:00)
[2018-01-25] MEDS ORDERED: IPRA0.06 (17:07)
[2018-01-25] MEDS ORDERED: PANT40TA3 PO (17:07)
[2018-01-25] MEDS ORDERED: VITA100018 PO (17:07)
[2018-01-25] MEDS ORDERED: FIBE625T PO (17:07)
[2018-01-25] MEDS ORDERED: FLUT1AER5 INH (17:07)
[2018-01-25] MEDS ORDERED: CULT10CA4 PO (17:07)
[2018-01-25] MEDS ORDERED: COLA100C5 PO (17:07)
[2018-01-25] MEDS: RESP: ALBUTEROL 2.5 MG/3 ML NEB (SCH) INH (17:11)
--- NOTE | 2018-01-25 17:15 | PD ---
HPI Chief Complaint: Respiratory Symptoms Time Seen by Provider: 16:51 Travel History International Travel<30 days: No Contact w/Intl Traveler<30days: No Traveled to known affect area: No History of Present Illness HPI Patient comes in complaining of continued shortness of breath, states that her she is normally on 2-4 L of oxygen and now she has had to go up on her oxygen because her pulse ox is down to 86% while on 4 L.... The patient was seen as COPD exacerbation with low oxygen AND HYPERCAPNEIC AT [facility] 2 DAYS AGO. PATIENT IS having too much trouble breathing to be able to participate in her HPI, she is breathing or rather speaking out out 1 word dyspnea. 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, claustrophobia, sarcoidosis, history of bleeding ulcers and bilateral knee pain PFSH Past Medical History Hx Anticoagulant Therapy: No Arthritis: Yes Autoimmune Disease: Yes (SARCOIDOSIS) Cancer: No Cardiovascular Problems: Yes High Cholesterol: Yes Diabetes: No Diminished Hearing: No Endocrine: No GERD: Yes Genitourinary: No Hepatitis: No Hiatal Hernia: No Hypertension: Yes Immune Disorder: No Medical other: Yes (HX OF BLEEDING ULCER; BILATERAL KNEE PAIN) Neurologic: No Reproductive: No Respiratory: Yes Thyroid Disease: No Tetanus Vaccination: Unknown Influenza Vaccination: Yes Menopausal: Yes Past Surgical History Abdominal Surgery: No Cardiac Surgery: No Ear Surgery: No Endocrine Surgery: No Eye Surgery: Yes (left eye cataract removal) Genitourinary Surgery: Yes (ANAL FISSURE 1993) Gynecologic Surgery: No Oral Surgery: Yes (TONSILECTOMY 1955) Pacemaker: No Thoracic Surgery: Yes (LUNG BIOPSY 1993) Tonsillectomy: Yes Other Surgery: Yes Social History Alcohol Use: Yes (RARE) Tobacco Use: No Substance Use: No Allergies-Medications (Allergen,Severity, Reaction): Coded Allergies: ondansetron (Verified Allergy, Unknown, Drowsiness, 01/25/18) Reported Meds & Prescriptions Reported Meds & Active Scripts Active Reported Colace (Docusate Sodium) 100 Mg Capsule 100 Mg PO BID Fibercon (Calcium Polycarbophil) 625 Mg Tab 1,250 Mg PO PRN Vitamin D3 (Cholecalciferol) 1,000 Unit Tab 1,000 Units PO DAILY Culturelle (Lactobacillus Rhamnosus (GG)) 10 Billion Cell Cap 1 Cap PO DAILY Fluticasone-Salmeterol Inh 232-14 Mcg Inh 1 Puff INH BID Ipratropium [place] 42 Mcg (0.06 %) [place] Pantoprazole (Pantoprazole Sodium) 40 Mg Tab 40 Mg PO DAILY Lovastatin 40 Mg Tab 40 Mg PO DAILY Lisinopril 5 Mg Tab 5 Mg PO DAILY Lasix (Furosemide) 20 Mg Tab 20 Mg PO DAILY Montelukast (Montelukast Sodium) 10 Mg Tab 10 Mg PO HS Tramadol (Tramadol HCl) 50 Mg Tab 50 Mg PO Q6H PRN Prednisone 10 Mg Tab 10 Mg PO EVERY OTHER DAY K-Tab (Potassium Chloride) 10 Meq Tab 10 Meq PO DAILY Albuterol Neb (Albuterol Sulfate) 0.63 Mg/3 Ml Neb 0.63 Mg NEB QID NEB PRN Review of Systems General / Constitutional: No: Fever Eyes: No: Visual changes HENT: No: Headaches Cardiovascular: No: Chest Pain or Discomfort Respiratory: Positive: Shortness of Breath, Wheezing Gastrointestinal: No: Abdominal Pain Genitourinary: No: Dysuria Musculoskeletal: No: Pain Skin: No Rash Neurologic: No: Weakness Psychiatric: No: Depression Endocrine: No: Polydipsia Hematologic/Lymphatic: No: Easy Bruising Physical Exam Narrative GENERAL: SKIN: Warm and dry. HEAD: Atraumatic. Normocephalic. EYES: Pupils equal and round. No scleral icterus. No injection or drainage. ENT: No nasal bleeding or discharge. Mucous membranes pink and moist. NECK: Trachea midline. No JVD. CARDIOVASCULAR: tachycardic rate And regular rhythm. RESPIRATORY: Supra sternal and intercostal accessory muscle use. Tripoding, 1 word dyspnea, tachypneic, severely decreased tidal volume, diffuse wheezing throughout GASTROINTESTINAL: Abdomen soft, non-tender, nondistended. Hepatic and splenic margins not palpable. MUSCULOSKELETAL: Extremities without clubbing, cyanosis, or edema. No obvious deformities. NEUROLOGICAL: Awake and alert. No obvious cranial nerve deficits. Motor grossly within normal limits. Five out of 5 muscle strength in the arms and legs. Normal speech. PSYCHIATRIC: Appropriate mood and affect; insight and judgment normal. Data Data Last Documented VS Vital Signs Date Time Temp Pulse Resp B/P (MAP) Pulse Ox O2 Delivery O2 Flow Rate FiO2 01/25/18 17:23 96 Non-Rebreather 15.00 100 5/8/18 17:01 98.7 115 31 130/72 (91) Orders Orders Complete Blood Count With Diff (01/25/18 16:52) Comprehensive Metabolic Panel (01/25/18 16:52) B-Type Natriuretic Peptide (01/25/18 16:52) Act Partial Throm Time (Ptt) (01/25/18 16:52) Prothrombin Time / Inr (Pt) (01/25/18 16:52) Ckmb (Isoenzyme) Profile (01/25/18 16:52) Troponin I (01/25/18 16:52) Iv Access Insert/Monitor (01/25/18 16:52) Ecg Monitoring (01/25/18 16:52) Oximetry (01/25/18 16:52) Oxygen Administration (01/25/18 16:52) Chest, Single Ap (01/25/18 16:52) Sodium Chloride 0.9% Flush (Ns Flush) (01/25/18 17:00) Methylprednisolone So Succ Inj (Solumedr (01/25/18 17:00) Albuterol Neb (Albuterol Neb) (01/25/18 17:00) Furosemide Inj (Lasix Inj) (01/25/18 17:00) Arterial Blood Gas (Abg) (01/25/18 16:52) Resp Bipap / Cpap Non Invas Vt (01/25/18 17:51) Magnesium Sulfate 1 Gm Premix (Magnesium (01/25/18 18:00) Admit Order (Ed Use Only) (01/25/18 17:59) Labs Laboratory Tests Test 01/25/18 17:10 01/25/18 17:18 White Blood Count 9.1 TH/MM3 Red Blood Count 4.56 MIL/MM3 Hemoglobin 13.2 GM/DL Hematocrit 41.6 % Mean Corpuscular Volume 91.3 FL Mean Corpuscular Hemoglobin 28.9 PG Mean Corpuscular Hemoglobin Concent 31.6 % Red Cell Distribution Width 15.0 % Platelet Count 267 TH/MM3 Mean Platelet Volume 9.8 FL Neutrophils (%) (Auto) 87.2 % Lymphocytes (%) (Auto) 4.0 % Monocytes (%) (Auto) 7.9 % Eosinophils (%) (Auto) 0.5 % Basophils (%) (Auto) 0.4 % Neutrophils # (Auto) 7.9 TH/MM3 Lymphocytes # (Auto) 0.4 TH/MM3 Monocytes # (Auto) 0.7 TH/MM3 Eosinophils # (Auto) 0.0 TH/MM3 Basophils # (Auto) 0.0 TH/MM3 CBC Comment DIFF FINAL Differential Comment Prothrombin Time 10.3 SEC Prothromb Time International Ratio 1.0 RATIO Activated Partial Thromboplast Time 24.4 SEC Blood Urea Nitrogen 28 MG/DL Creatinine 0.97 MG/DL Random Glucose 128 MG/DL Total Protein 7.5 GM/DL Albumin 3.4 GM/DL Calcium Level 9.9 MG/DL Alkaline Phosphatase 78 U/L Aspartate Amino Transf (AST/SGOT) 24 U/L Alanine Aminotransferase (ALT/SGPT) 30 U/L Total Bilirubin 0.3 MG/DL Sodium Level 140 MEQ/L Potassium Level 4.2 MEQ/L Chloride Level 92 MEQ/L Carbon Dioxide Level 42.7 MEQ/L Anion Gap 5 MEQ/L Estimat Glomerular Filtration Rate 56 ML/MIN Total Creatine Kinase 59 U/L Troponin I 0.10 NG/ML B-Type Natriuretic Peptide 1029 PG/ML Blood Gas Puncture Site RT RADIAL Blood Gas Patient Temperature 98.6 Blood Gas HCO3 44 mmol/L Blood Gas Base Excess 16.3 mmol/L Blood Gas Oxygen Saturation 96 % Arterial Blood pH 7.23 Arterial Blood Partial Pressure CO2 109 mmHg Arterial Blood Partial Pressure O2 107 mmHG Arterial Blood Oxygen Content 17.6 Vol % Arterial Blood Carboxyhemoglobin 1.2 % Arterial Blood Methemoglobin 0.7 % Blood Gas Hemoglobin 13.0 G/DL Oxygen Delivery Device Non-Rebreathing Mask Blood Gas Liter Flow 15 L/M [facility] Medical Decision Making Medical Screen Exam Complete: Yes Emergency Medical Condition: Yes Medical Record Reviewed: Yes Interpretation(s) EKG shows sinus tachycardia with incomplete right bundle branch branch block, RVH pattern, and diffusely inverted T waves, except for 1 and aVL. ABG performed on a nonrebreather shows a pH of 7.23 PCO2 0109 and a PaO2 107 This ABG findings are consistent with severe respiratory hypercapnic failure, the patient would not normally qualify for intubation however, family at the bedside and the patient herself declined intubation at this time, patient does not have a DNR in place, and due to the severe hypercapnia I do not believe that the patient herself has the mental capacity to make such decisions on her behalf, however her is perfectly capable of performing those and I will abide by his request not to intubate. However I will use BiPAP as a resource and have the patient admitted Differential Diagnosis Pneumonia versus COPD exacerbation versus hypercapnic respiratory failure versus hypoxemic respiratory failure Narrative Course CBC shows no leukocytosis, no left shift, no anemia, and normal platelet count Coagulation profile is pending Chemistries also pending ABG on a nonrebreather, shows a pH of 7.23, PCO2 109 PaO2 of 107. See interpretation above Chest x-ray read by radiologist as worsening in aeration with increased confluence of infiltrate in the left lateral midlung, persistent by basilar and perihilar infiltrates. Critical Care Narrative CRITICAL CARE NOTE: With evaluation of the patient, labs, EKG, receipt of radiologic studies, administration of medications, reevaluation the patient and discussion of the patient with the admitting physicians, the total critical care time was [60] minutes. Time to perform other separately billable procedures was not included in the critical care time. Diagnosis Primary Impression: COPD exacerbation Additional Impression: Hypercapnic respiratory failure Leonardo Murillo MD January 25, 2018 17:15
--- NOTE | 2018-01-25 17:39 | RADRPT ---
EXAM DATE/TIME: 01/25/2018 17:08 [facility] COMPARISON: CHEST SINGLE AP, January 23, 2018, 17:50. INDICATIONS : Short of breath. MEDICAL HISTORY : Sarcoidosis. SURGICAL HISTORY : None. ENCOUNTER: Initial ACUITY: 1 day PAIN SCORE: Non-responsive. LOCATION: Bilateral chest FINDINGS: There has been slight interval worsening in aeration with increasing confluence of infiltrate in the left lateral midlung. Persistent bibasilar and perihilar infiltrates. Cardiac contours are grossly un changed. CONCLUSION: Slight interval worsening in aeration. Lele Butler MD on January 25, 2018 at 17:36 Board Certified Radiologist. This report was verified electronically.
[2018-01-25 17:44] LABS: AUTOMATED NEUTROPHIL # 7.9 TH/MM3 (1.8-7.7); BASOPHIL % 0.4 % (0.0-2.0); EOSINOPHIL % 0.5 % (0.0-4.0); HEMATOCRIT 41.6 % (35.0-46.0); HEMOGLOBIN 13.2 GM/DL (11.6-15.3); LYMPHOCYTE # 0.4 TH/MM3 (1.0-4.8); MEAN CELL VOLUME 91.3 FL (80.0-100.0); MEAN CORPUSCULAR HEMOGLOBIN 28.9 PG (27.0-34.0); MEAN CORPUSCULAR HGB CONC 31.6 % (32.0-36.0); MEAN PLATELET VOLUME 9.8 FL (7.0-11.0); MONO % 7.9 % (0.0-8.0); MONOCYTE # 0.7 TH/MM3 (0-0.9); NEUT % 87.2 % (16.0-70.0); PLATELET COUNT 267 TH/MM3 (150-450); RED BLOOD COUNT 4.56 MIL/MM3 (4.00-5.30); WHITE BLOOD COUNT 9.1 TH/MM3 (4.0-11.0)
[2018-01-25] MEDS ORDERED: MAGNESIUM SULFATE 1 GM PREMIX 100 ML IV ONE (18:00)
[2018-01-25 18:17] LABS: PROTHROMBIN TIME - PATIENT 10.3 SEC (9.8-11.6)
--- NOTE | 2018-01-25 18:32 | HHI.HP ---
HPI Service Critical Care Medicine Primary Care Physician Alison Tellez MD Admission Diagnosis HYPERCAPNEIC RESPIRATORY FAILURE, PNA, ENDSTAGE COPD Diagnosis: Chief Complaint: Worsening shortness of breath antalgic mental status Travel History International Travel<30 Days: No Contact w/Intl Traveler <30 Da: No Traveled to Known Affected Are: No History of Present Illness 72-year-old lady with history of sarcoidosis and end-stage lung disease, on home oxygen at 5 L, now comes in with worsening shortness of breath over the last 2 days associated with worsening mental status. History is obtained from brother who is present at bedside. Over the last week patient had gradual worsening shortness of breath, associated with nonproductive cough for which she presented on Wednesday to [facility] emergency department. She was given lasix, breathing treatment and patient left home. Over the last 2 days patient had gradual worsening in her condition, being more sleepy than usual and with worsening shortness of breath, which prompted ED presentation. On ED arrival, patient was lethargic, arousable. Blood gas done showed significant hypercapnia. ED attending discussed with brother present at bedside about intubation and mechanical ventilation and brother expressed that based on patient's prior wishes she would not want, therefore patient was placed on BiPAP and CCM was consulted for ICU admission. Patient was seen in ED, lethargic, arousable, following some commands, on BiPAP. Brother present at bedside providing history. Of note, patient was given Lasix, Solu-Medrol, magnesium and bronchodilators. Review of Systems ROS Limitations: Altered Mental Status Past Family Social History Allergies: Coded Allergies: ondansetron (Verified Allergy, Unknown, Drowsiness, 01/25/18) Past Medical History Sarcoidosis, hypertension, hyperlipidemia, diverticulosis Past Surgical History Bilateral cataract surgery, lung biopsy, removal of sebaceous cyst from the posterior right neck Reported Medications Reported Meds & Active Scripts Active Reported Colace (Docusate Sodium) 100 Mg Capsule 100 Mg PO BID Fibercon (Calcium Polycarbophil) 625 Mg Tab 1,250 Mg PO PRN Vitamin D3 (Cholecalciferol) 1,000 Unit Tab 1,000 Units PO DAILY Culturelle (Lactobacillus Rhamnosus (GG)) 10 Billion Cell Cap 1 Cap PO DAILY Fluticasone-Salmeterol Inh 232-14 Mcg Inh 1 Puff INH BID Ipratropium [place] 42 Mcg (0.06 %) [place] Pantoprazole (Pantoprazole Sodium) 40 Mg Tab 40 Mg PO DAILY Lovastatin 40 Mg Tab 40 Mg PO DAILY Lisinopril 5 Mg Tab 5 Mg PO DAILY Lasix (Furosemide) 20 Mg Tab 20 Mg PO DAILY Montelukast (Montelukast Sodium) 10 Mg Tab 10 Mg PO HS Tramadol (Tramadol HCl) 50 Mg Tab 50 Mg PO Q6H PRN Prednisone 10 Mg Tab 10 Mg PO EVERY OTHER DAY K-Tab (Potassium Chloride) 10 Meq Tab 10 Meq PO DAILY Albuterol Neb (Albuterol Sulfate) 0.63 Mg/3 Ml Neb 0.63 Mg NEB QID NEB PRN Family History Sister had breast cancer, brother with sarcoidosis, brother with CA, father with lymphoma Social History No tobacco, no alcohol, no drugs Physical Exam Vital Signs Vital Signs Date Time Temp Pulse Resp B/P (MAP) Pulse Ox O2 Delivery O2 Flow Rate FiO2 01/25/18 18:21 93 BiPAP 50 01/25/18 18:08 90 50 01/25/18 17:23 96 Non-Rebreather 15.00 100 01/25/18 17:01 98.7 115 31 130/72 (91) 96 Non-Rebreather 01/25/18 17:00 96 Non-Rebreather 01/25/18 16:45 117 33 95 Non-Rebreather 01/25/18 16:42 98.7 117 33 130/72 (91) 95 Non-Rebreather 01/25/18 16:38 98.7 118 33 130/72 (91) 94 Physical Exam General - elderly lady, lethargic, arousable, ill appearing HEENT - pupils equal, reactive, sclerae anicteric, neck supple, no rigidity, no JVD, no carotid bruit CV - regular S1, S2, no murmurs, tachycardic Chest - coarse breath sounds b/l, decreased air entry, scattered wheezes Abdomen - soft, obese, non-tender, BS present, no hepatomegaly, no splenomegaly Skin - no rashes appreciated Extremities - 3+ edema, + peripheral pulses, warm and well-perfused Neuro - lethargic, arousable, follows some commands, moves all extremities, lower extremities are Laboratory Laboratory Tests Test 01/25/18 17:10 01/25/18 17:18 White Blood Count 9.1 Red Blood Count 4.56 Hemoglobin 13.2 Hematocrit 41.6 Mean Corpuscular Volume 91.3 Mean Corpuscular Hemoglobin 28.9 Mean Corpuscular Hemoglobin Concent 31.6 Red Cell Distribution Width 15.0 Platelet Count 267 Mean Platelet Volume 9.8 Neutrophils (%) (Auto) 87.2 Lymphocytes (%) (Auto) 4.0 Monocytes (%) (Auto) 7.9 Eosinophils (%) (Auto) 0.5 Basophils (%) (Auto) 0.4 Neutrophils # (Auto) 7.9 Lymphocytes # (Auto) 0.4 Monocytes # (Auto) 0.7 Eosinophils # (Auto) 0.0 Basophils # (Auto) 0.0 CBC Comment DIFF FINAL Differential Comment Prothrombin Time 10.3 Prothromb Time International Ratio 1.0 Activated Partial Thromboplast Time 24.4 Blood Gas Puncture Site RT RADIAL Blood Gas Patient Temperature 98.6 Blood Gas HCO3 44 Blood Gas Base Excess 16.3 Blood Gas Oxygen Saturation 96 Arterial Blood pH 7.23 Arterial Blood Partial Pressure CO2 109 Arterial Blood Partial Pressure O2 107 Arterial Blood Oxygen Content 17.6 Arterial Blood Carboxyhemoglobin 1.2 Arterial Blood Methemoglobin 0.7 Blood Gas Hemoglobin 13.0 Oxygen Delivery Device Non-Rebreathing Mask Blood Gas Liter Flow 15 Result Diagram: 01/25/18 1710 Imaging Last Impressions Chest X-Ray 01/25/18 1652 Signed Impressions: Service Date/Time: Thursday, January 25, 2018 17:08 - CONCLUSION: Slight interval worsening in aeration. MD Jonathon Zhoui VTE Risk Assessment Caprini VTE Risk Assessment: Mod/High Risk (score >= 2) Caprini Risk Assessment Model Point Value = 1 Point Value = 2 Point Value = 3 Point Value = 5 Age 41-60 Minor surgery BMI > 25 kg/m2 Swollen legs Varicose veins or History of unexplained or recurrent spontaneous Oral contraceptives or hormone replacement Sepsis (< 1 month) Serious lung disease, including pneumonia (< 1 month) Abnormal pulmonary function Acute myocardial infarction Congestive heart failure (< 1 month) History of inflammatory bowel disease Medical patient at bed rest Age 61-74 Arthroscopic surgery Major open surgery (> 45 min) Laparoscopic surgery (> 45 min) Malignancy Confined to bed (> 72 hours) Immobilizing plaster cast Central venous access Age >= 75 History of VTE Family history of VTE Factor V Leiden Prothrombin [id number] Lupus anticoagulant Anticardiolipin antibodies Elevated serum homocysteine Heparin-induced thrombocytopenia Other congenital or acquired thrombophilia Stroke (< 1 month) Elective arthroplasty Hip, pelvis, or leg fracture Acute spinal cord injury (< 1 month) Prophylaxis Regimen Total Risk Factor Score Risk Level Prophylaxis Regimen 0-1 Low Early ambulation 2 Moderate Order ONE of the following: *Sequential Compression Device (SCD) *Heparin 5000 units SQ BID 3-4 Higher Order ONE of the following medications: *Heparin 5000 units SQ TID *Enoxaparin/Lovenox 40 mg SQ daily (WT < 150 kg, CrCl > 30 mL/min) *Enoxaparin/Lovenox 30 mg SQ daily (WT < 150 kg, CrCl > 10-29 mL/min) *Enoxaparin/Lovenox 30 mg SQ BID (WT < 150 kg, CrCl > 30 mL/min) AND/OR *Sequential Compression Device (SCD) 5 or more Highest Order ONE of the following medications: *Heparin 5000 units SQ TID (Preferred with Epidurals) *Enoxaparin/Lovenox 40 mg SQ daily (WT < 150 kg, CrCl > 30 mL/min) *Enoxaparin/Lovenox 30 mg SQ daily (WT < 150 kg, CrCl > 10-29 mL/min) *Enoxaparin/Lovenox 30 mg SQ BID (WT < 150 kg, CrCl > 30 mL/min) AND *Sequential Compression Device (SCD) Assessment and Plan Assessment and Plan 1. Acute on chronic hypercapnic and hypoxic respiratory failure 2. End-stage lung disease 3. Sarcoidosis 4. ? Congestive heart failure 5. Cannot rule out pneumonia 6. History of hypertension 7. History of hyperlipidemia 1. Continue BiPAP, settings readjusted, IPAP increased to 20, EPAP at 5, FiO2 at 0.5 2. Titrate O2 to keep SPO2 between 88 and 92% 3. Bronchodilators 4. Steroids 5. Lasix 6. Serial cardiac enzymes and echocardiogram 7. Send blood cultures, sputum culture, UA and urine culture 8. Start Vanco and Zosyn 9. N.p.o. 10. GI prophylaxis with famotidine 11. DVT prophylaxis with heparin 12. I had extensive discussion with patient's present at bedside. Patient has no children and no or brother. Another 3 siblings which live in [place] and he is the only one living with patient. Based on patient's prior wishes expressed by her brother she would not want to be intubated, on breathing machine and she would not want to be resuscitated as well in case her heart stops. We will respect patient's wishes expressed by her brother and we will place a DNR order in the chart. We will also place palliative care consult. Alex Franklin MD January 25, 2018 18:32
[2018-01-25 18:37] LABS: ALBUMIN 3.4 GM/DL (3.4-5.0); ALT (GPT) 30 U/L (10-53); AST (GOT) 24 U/L (15-37); BICARBONATE 42.7 MEQ/L (21.0-32.0); BLOOD UREA NITROGEN 28 MG/DL (7-18); CALCIUM 9.9 MG/DL (8.5-10.1); CHLORIDE 92 MEQ/L (98-107); CREATININE 0.97 MG/DL (0.50-1.00); GLOMERULAR FILTRATION RATE 56 ML/MIN (>89); GLUCOSE,RANDOM 128 MG/DL (74-106); SODIUM (NA) 140 MEQ/L (136-145)
[2018-01-25 18:41] LABS: ALKALINE PHOSPHATASE 78 U/L (45-117); TOTAL BILIRUBIN ADULT 0.3 MG/DL (0.2-1.0); TOTAL PROTEIN 7.5 GM/DL (6.4-8.2)
[2018-01-25] MEDS ORDERED: Vancomycin Consult Pharmacy 1 EA OTHER SCH (18:45)
[2018-01-25] MEDS ORDERED: NURSING INFORMATION XX SCH (18:45)
[2018-01-25] MEDS ORDERED: CHLORHEXIDINE GLUCONATE 2 % 1 PACK (2 CLOTHS) TOP PRN (18:45)
[2018-01-25] MEDS ORDERED: ONDANSETRON HCL 4 MG/2 ML VIAL IV PUSH ONE (20:00)
[2018-01-25] MEDS: SODIUM CHLORIDE 0.9% FLUSH 10 ML FLUSH IVF PRN (20:02)
[2018-01-25] MEDS: RESP: ALBUTEROL 2.5 MG/IPRATROPIUM 0.5 MG NEB (SCH) INH (20:23)
--- NOTE | 2018-01-25 20:43 | PD ---
Data Data Last Documented VS Vital Signs Date Time Temp Pulse Resp B/P (MAP) Pulse Ox O2 Delivery O2 Flow Rate FiO2 01/25/18 17:23 96 Non-Rebreather 15.00 100 01/25/18 17:01 98.7 115 31 130/72 (91) Orders Orders Complete Blood Count With Diff (01/25/18 16:52) Comprehensive Metabolic Panel (01/25/18 16:52) B-Type Natriuretic Peptide (01/25/18 16:52) Act Partial Throm Time (Ptt) (01/25/18 16:52) Prothrombin Time / Inr (Pt) (01/25/18 16:52) Ckmb (Isoenzyme) Profile (01/25/18 16:52) Troponin I (01/25/18 16:52) Iv Access Insert/Monitor (01/25/18 16:52) Ecg Monitoring (01/25/18 16:52) Oximetry (01/25/18 16:52) Oxygen Administration (01/25/18 16:52) Chest, Single Ap (01/25/18 16:52) Sodium Chloride 0.9% Flush (Ns Flush) (01/25/18 17:00) Methylprednisolone So Succ Inj (Solumedr (01/25/18 17:00) Albuterol Neb (Albuterol Neb) (01/25/18 17:00) Furosemide Inj (Lasix Inj) (01/25/18 17:00) Arterial Blood Gas (Abg) (01/25/18 16:52) Resp Bipap / Cpap Non Invas Vt (01/25/18 17:51) Magnesium Sulfate 1 Gm Premix (Magnesium (01/25/18 18:00) Admit Order (Ed Use Only) (01/25/18 17:59) Labs Laboratory Tests Test 01/25/18 17:10 01/25/18 17:18 White Blood Count 9.1 TH/MM3 Red Blood Count 4.56 MIL/MM3 Hemoglobin 13.2 GM/DL Hematocrit 41.6 % Mean Corpuscular Volume 91.3 FL Mean Corpuscular Hemoglobin 28.9 PG Mean Corpuscular Hemoglobin Concent 31.6 % Red Cell Distribution Width 15.0 % Platelet Count 267 TH/MM3 Mean Platelet Volume 9.8 FL Neutrophils (%) (Auto) 87.2 % Lymphocytes (%) (Auto) 4.0 % Monocytes (%) (Auto) 7.9 % Eosinophils (%) (Auto) 0.5 % Basophils (%) (Auto) 0.4 % Neutrophils # (Auto) 7.9 TH/MM3 Lymphocytes # (Auto) 0.4 TH/MM3 Monocytes # (Auto) 0.7 TH/MM3 Eosinophils # (Auto) 0.0 TH/MM3 Basophils # (Auto) 0.0 TH/MM3 CBC Comment DIFF FINAL Differential Comment Prothrombin Time 10.3 SEC Prothromb Time International Ratio 1.0 RATIO Activated Partial Thromboplast Time 24.4 SEC Blood Urea Nitrogen 28 MG/DL Creatinine 0.97 MG/DL Random Glucose 128 MG/DL Total Protein 7.5 GM/DL Albumin 3.4 GM/DL Calcium Level 9.9 MG/DL Alkaline Phosphatase 78 U/L Aspartate Amino Transf (AST/SGOT) 24 U/L Alanine Aminotransferase (ALT/SGPT) 30 U/L Total Bilirubin 0.3 MG/DL Sodium Level 140 MEQ/L Potassium Level 4.2 MEQ/L Chloride Level 92 MEQ/L Carbon Dioxide Level 42.7 MEQ/L Anion Gap 5 MEQ/L Estimat Glomerular Filtration Rate 56 ML/MIN Total Creatine Kinase 59 U/L Troponin I 0.10 NG/ML B-Type Natriuretic Peptide 1029 PG/ML Blood Gas Puncture Site RT RADIAL Blood Gas Patient Temperature 98.6 Blood Gas HCO3 44 mmol/L Blood Gas Base Excess 16.3 mmol/L Blood Gas Oxygen Saturation 96 % Arterial Blood pH 7.23 Arterial Blood Partial Pressure CO2 109 mmHg Arterial Blood Partial Pressure O2 107 mmHG Arterial Blood Oxygen Content 17.6 Vol % Arterial Blood Carboxyhemoglobin 1.2 % Arterial Blood Methemoglobin 0.7 % Blood Gas Hemoglobin 13.0 G/DL Oxygen Delivery Device Non-Rebreathing Mask Blood Gas Liter Flow 15 L/M MDM Supervised Visit with EMELY: No Narrative Course I was called to this patient's bedside for a change in status, apparently the patient just had a dose of Zofran and then had a sudden desaturation down his lower 40s. I was informed by nursing the patient's already admitted to the ICU but is holding down in the emergency department. She does have a signed DNR order by Dr. Murillo that was cosigned by her brother Sohan. Patient is clearly altered, GCS of [id number]. She will not verbalize her wishes at all. Apparently she verbalized prior to my shift that she wished to be a DNR/DNI. She apparently has a history of end-stage sarcoidosis. Her brother at the bedside is visibly upset, I asked him what the patient's wishes would be and he stated that she would not want to be aggressively resuscitated would not want to be artificially ventilated. She was on a BiPAP and does not initiating respiratory effort and so was discontinued in favor of nonrebreather. She does not have very much respiratory effort, she will track me in around the room but will not verbalize. She will not follow my commands. At this point will defer to the previous providers documentation of a DNR status as well as today brothers wishes for the patient to be DNR/DNI. Dr. Chaparro was informed and the patient has been seen by Dr. Chaparro, on ABG was ordered which shows severe respiratory acidosis with a PCO2 of 152 and pH 7.107. This would explain her encephalopathy. I think the patient's mortality rate is quite high without aggressive resuscitation however this is her wishes per the brother and the previous documentation. I offered prepress manager services and they were greatly accepted by the patient's brother. Diagnosis Primary Impression: COPD exacerbation Additional Impression: Hypercapnic respiratory failure Condition: Serious Yared Guerin MD January 25, 2018 20:43
[2018-01-25] MEDS: MONTELUKAST SODIUM 10 MG TAB PO SCH (21:00)
[2018-01-25] MEDS: BUDESONIDE-FORMOTEROL 160/4.5 MCG INHALER INH SCH (21:00)
[2018-01-25] MEDS ORDERED: VANCOMYCIN INJ 1,750 MG in SODIUM CHLORID 0.9% 500 ML INJ 500 ML IV ONE (21:00)
[2018-01-25] MEDS: PIPERACIL-TAZO 3.375 GM PREMIX 50 ML IV SCH (21:51)
[2018-01-25] MEDS: HEPARIN SODIUM - SQ 10,000 UNITS/ML VIAL SQ SCH (21:51)
[2018-01-25] MEDS: FAMOTIDINE 20 MG/2 ML VIAL IV PUSH SCH (21:51)
[2018-01-25] MEDS: methylPREDNISolone SOD SUCC 125 MG/2 ML VIAL IV PUSH SCH (22:10)
[2018-01-26] VITALS (20 sets, daily range): BP systolic 73–113; BP diastolic 45–60; PULSE 70–102; RESP 20–38; TEMP 96.1–97.7; O2SAT 74–98
[2018-01-26] MEDS: RESP: ALBUTEROL 2.5 MG/IPRATROPIUM 0.5 MG NEB (SCH) INH ×6 (00:06→20:43)
[2018-01-26] MEDS: CHLORHEXIDINE GLUCONATE 2 % 1 PACK (2 CLOTHS) TOP SCH (00:55)
[2018-01-26] MEDS: PIPERACIL-TAZO 3.375 GM PREMIX 50 ML IV SCH ×4 (02:31→18:52)
[2018-01-26] MEDS: methylPREDNISolone SOD SUCC 125 MG/2 ML VIAL IV PUSH SCH ×3 (05:38→19:58)
[2018-01-26 06:25] LABS: AUTOMATED NEUTROPHIL # 13.3 TH/MM3 (1.8-7.7); HEMATOCRIT 45.4 % (35.0-46.0); HEMOGLOBIN 13.7 GM/DL (11.6-15.3); LYMPH % 2.3 % (9.0-44.0); LYMPHOCYTE # 0.3 TH/MM3 (1.0-4.8); MEAN CELL VOLUME 94.5 FL (80.0-100.0); MEAN CORPUSCULAR HEMOGLOBIN 28.5 PG (27.0-34.0); MEAN CORPUSCULAR HGB CONC 30.2 % (32.0-36.0); MEAN PLATELET VOLUME 9.5 FL (7.0-11.0); MONO % 6.6 % (0.0-8.0); NEUT % 91.1 % (16.0-70.0); PLATELET COUNT 307 TH/MM3 (150-450); RED CELL DISTRIBUTION WIDTH 15.6 % (11.6-17.2); WHITE BLOOD COUNT 14.6 TH/MM3 (4.0-11.0)
[2018-01-26 07:02] LABS: ALBUMIN 3.3 GM/DL (3.4-5.0); ALKALINE PHOSPHATASE 118 U/L (45-117); ALT (GPT) 81 U/L (10-53); AST (GOT) 96 U/L (15-37); BICARBONATE 43.2 MEQ/L (21.0-32.0); BLOOD UREA NITROGEN 33 MG/DL (7-18); CALCIUM 9.5 MG/DL (8.5-10.1); CHLORIDE 92 MEQ/L (98-107); CREATININE 1.52 MG/DL (0.50-1.00); GLOMERULAR FILTRATION RATE 34 ML/MIN (>89); GLUCOSE,RANDOM 179 MG/DL (74-106); PHOSPHORUS 8.6 MG/DL (2.5-4.9); SODIUM (NA) 140 MEQ/L (136-145); TOTAL BILIRUBIN ADULT 0.8 MG/DL (0.2-1.0); TOTAL PROTEIN 7.7 GM/DL (6.4-8.2)
[2018-01-26] MEDS ORDERED: VANCOMYCIN INJ 750 MG in SODIUM CHLOR 0.9% 250 ML INJ 250 ML IV SCH (09:00)
[2018-01-26] MEDS: BUDESONIDE-FORMOTEROL 160/4.5 MCG INHALER INH SCH ×2 (09:00→19:58)
--- NOTE | 2018-01-26 09:25 | EKG ---
Date Performed: 01/25/2018 Time Performed: 16:47:35 PTAGE: 72 years EKG: SINUS TACHYCARDIA WITH SHORT OK INTERVAL POSSIBLE LEFT ATRIAL ENLARGEMENT PATTERN CONSISTEN T WITH PULMONARY DISEASE INCOMPLETE RIGHT BUNDLE BRANCH BLOCK RIGHT VENTRICULAR HYPERTROPHY AND ST-T CHANGE PROBABLE INFERIOR MYOCARDIAL INFARCTION ABNORMAL ECG INTERPRETATION BASED ON A DEFAULT AGE OF 40 YEARS NO PREVIOUS TRACING DOCTOR: Babar Choudhary Interpretating Date/Time 01/26/2018 09:19:22
[2018-01-26] MEDS: FAMOTIDINE 20 MG/2 ML VIAL IV PUSH SCH ×2 (09:59→19:57)
[2018-01-26] MEDS: FUROSEMIDE 40 MG/4 ML VIAL IV PUSH SCH (10:00)
[2018-01-26] MEDS: HEPARIN SODIUM - SQ 10,000 UNITS/ML VIAL SQ SCH ×2 (10:00→19:58)
--- NOTE | 2018-01-26 12:45 | PD.CONS ---
Consult Service Palliative Care Consult Requested By Dr. Franklin Primary Care Physician Alison Tellez MD Reason for Consultation , a. To assist with evaluation and management of symptoms including: Dyspnea, encephalopathy b. To assist medical decision maker(s) with: better understanding of current medical conditions; weighing benefits/burdens of medical treatment options; making medical treatment decisions. HPI History of Present Illness This is a 72-year-old female with a history of sarcoidosis, end-stage lung disease and hypertension, who presents to the emergency room with a complaint dyspnea. She is chronically on 2-4 L of oxygen but had recent required an increase to 5 L to hypoxia of 86% on 4 L. Her ABG on a nonrebreather showed a pH of 7.23, PCO2 109, PaO2 of 107, showing hypercapnic respiratory failure. She was seen in [place] emergency department 2 days earlier for a total body spasm type sensation as well as dyspnea. At that admission she was found to be mildly hyperkalemic with a potassium of 5.4 and given Kayexalate calcium. She declined resuscitation, intubation or BiPAP at that evaluation and signed a DO NOT RESUSCITATE form. She lives with her brother who is struggling with this decision. Although she was offered admission at the 01/23 evaluation, she decided to sign out AMA. She was advised to follow-up with her primary care on Wednesday and discuss the possibility of hospice. ED course * Laboratory: WBC 9.1, hemoglobin 13.2, hematocrit 41.6, platelets 267. Sodium 140, potassium 4.2, BUN 28, creatinine 0.97, random glucose 128, B natruretic peptide 1029, troponin 0 0.10. ABG showed pH 7.107, PCO2 152. * Radiology: Chest x-ray on admission showed interval worsening in aeration with increasing confluence of infiltrate in the left lateral midlung, persistent bibasilar and perihilar infiltrates and unchanged cardiac contours. * Medical decision making: While in the ED, patient had a change in status after a dose of Zofran resulting in a sudden desaturation to the lower 40%. She had an alteration in mental status with a GCS of 9 ([id number]) and was unable to verbalize her wishes at all. ED staff was aware that she wished to be DNR/ DNI due to her end-stage sarcoidosis. At that time her brother BiPAP mask to be applied, however patient was not initiating any respirations and so that was changed to a nonrebreather.She was encephalopathic, likely due to hypercarbia. She was transferred to ICU under the care of Dr. Dr. Franklin. This is an elderly female seen in intensive medical care, on BiPAP mask, with her brother at bedside. He is visibly tearful and upset at the passing of his sister, with whom he has lived all his life. She is encephalopathic and not responding to commands. She is currently on 85% FiO2 saturating in the mid 90s. Urine output is minimal. She is receiving furosemide 40 mg IV daily, Solu-Medrol 60 mg IV every 8 hours, Zosyn every 6 hours and vancomycin IV every 24 hours. I discussed her case with Dr. Franklin who feels that her prognosis is extremely poor and is likely to occur within the next 24 hours. Family meeting is pending later today when patient's sister arrives. . Function/Cognitive Trajectory She has been becoming progressively more encephalopathic, likely secondary to the increased carbon dioxide retention. Her brother has been assisting her at home and has noted that she has required more help and have become more sedentary lately. Due to the decline in her functional and comfort status, patient has made herself a DO NOT RESUSCITATE status to include DO NOT INTUBATE. She had previously stated no BiPAP, however when she went unresponsive, her brother wished to try to keep her going until family could arrive so approved the application of the BiPAP mask. Family is currently enroute to the hospital. . Review of Systems ROS Limitations: Altered Mental Status, Unresponsive (Patient is nonverbal and unable to provide their own ROS. 10 part ROS taken as best as possible from medical record and available family.) Constitutional: COMPLAINS OF: Fatigue, Generalized weakness Endocrine: DENIES: Abnorml menstrual pattern, Heat/cold intolerance, Polydipsia , Polyuria, Polyphagia Eyes: DENIES: Blurred vision, Diplopia, Eye inflammation, Eye pain, Vision loss , Photosensitivity, Double Vision, Blind spots Ears, nose, mouth, throat: DENIES: Tinnitus, Hearing loss, Vertigo, Nasal discharge, Oral lesions, Throat pain, Hoarseness, Ear Pain, Running Nose, Epistaxis, Sinus Pain, Toothache, Odynophagia Respiratory: COMPLAINS OF: Shortness of breath Cardiovascular: COMPLAINS OF: Dyspnea on Exertion, Lower Extremity Edema, Orthopnea Gastrointestinal: DENIES: Abdominal pain, Black stools, Bloody stools, Constipation, Diarrhea, Nausea, Vomiting, Difficulty Swallowing, Anorexia, Dyspepsia or heartburn, Excessive gas, Bloating, Vomiting blood Genitourinary: DENIES: Abnormal vaginal bleeding, Dysmenorrhea, Dyspareunia, Sexual dysfunction, Urinary frequency, Urinary incontinence, Urgency, Hematuria , Dysuria, Nocturia, Vaginal discharge, Hesitancy, Dribbling, Decreased stream Musculoskeletal: DENIES: Joint pain, Muscle aches, Stiffness, Joint Swelling, Back pain, Neck pain, Decreased range of motion Integumentary: DENIES: Abnormal pigmentation, Pruritus, Rash, Nail changes, Breast masses, Breast skin changes, Nipple discharge, Nodules, Tumors, Excessive dryness, Non-healing sores Hematologic/Lymphatics: DENIES: Bruising, Lymphadenopathy, Prolonged bleed w/ proced, History of transfusions Immunologic/Allergic: DENIES: Eczema, Urticaria Neurologic: DENIES: Abnormal gait, Headache, Localized weakness, Paresthesias, Seizures, Speech Problems, Tremor, Poor Balance, Change in smell or taste Psychiatric: DENIES: Anxiety, Confusion, Mood changes, Depression, Hallucinations, Agitation, Suicidal Ideation, Homicidal Ideation, Delusions, Anhedonia Past Family Social History Coded Allergies: ondansetron (Verified Allergy, Unknown, Drowsiness, 01/25/18) Past Medical History Sarcoidosis Hypertension Hyperlipidemia Diverticulosis . Past Surgical History Bilateral cataract surgery Lung biopsy Sebaceous cyst removal from right posterior neck . Reported Medications Reported Meds & Active Scripts Active Reported Colace (Docusate Sodium) 100 Mg Capsule 100 Mg PO BID Fibercon (Calcium Polycarbophil) 625 Mg Tab 1,250 Mg PO PRN Vitamin D3 (Cholecalciferol) 1,000 Unit Tab 1,000 Units PO DAILY Culturelle (Lactobacillus Rhamnosus (GG)) 10 Billion Cell Cap 1 Cap PO DAILY Fluticasone-Salmeterol Inh 232-14 Mcg Inh 1 Puff INH BID Ipratropium [place] 42 Mcg (0.06 %) [place] Pantoprazole (Pantoprazole Sodium) 40 Mg Tab 40 Mg PO DAILY Lovastatin 40 Mg Tab 40 Mg PO DAILY Lisinopril 5 Mg Tab 5 Mg PO DAILY Lasix (Furosemide) 20 Mg Tab 20 Mg PO DAILY Montelukast (Montelukast Sodium) 10 Mg Tab 10 Mg PO HS Tramadol (Tramadol HCl) 50 Mg Tab 50 Mg PO Q6H PRN Prednisone 10 Mg Tab 10 Mg PO EVERY OTHER DAY K-Tab (Potassium Chloride) 10 Meq Tab 10 Meq PO DAILY Albuterol Neb (Albuterol Sulfate) 0.63 Mg/3 Ml Neb 0.63 Mg NEB QID NEB PRN Current Medications Medications (Trade) Dose Ordered Sig/Chema Route Start Time Stop Time Status Last Admin (NS Flush) 2 ml UNSCH PRN IVF 01/25/18 17:00 01/25/18 20:02 (Pepcid Inj) 20 mg Q12HR IV PUSH 01/25/18 21:00 01/26/18 09:59 (Duoneb Neb) 1 ampule Q4HR NEB INH 01/25/18 20:00 01/26/18 09:55 (Heparin Inj) 5,000 units Q12HR SQ 01/25/18 18:45 01/26/18 10:00 ([facility] Nursing Information) 1 Q361D XX 01/25/18 18:45 (Chlorhexidine 2% Cloth) 3 pack Taper DAILY@04 TOP 01/26/18 04:00 01/22/19 03:59 01/26/18 00:55 (Chlorhexidine 2% Cloth) 3 pack UNSCH PRN TOP 01/25/18 18:45 (Singulair) 10 mg HS PO 01/25/18 21:00 (Symbicort 160-4.5 Mcg Inh) 2 puff BID INH 01/25/18 21:00 (SoluMEDROL INJ) 60 mg Q8HR IV PUSH 01/25/18 22:00 01/26/18 05:38 (Lasix Inj) 40 mg DAILY IV PUSH 01/26/18 09:00 01/26/18 10:00 Pharmacy Profile Note 0 ml @ 0 mls/hr UNSCH OTHER 01/25/18 18:45 Piperacillin Sod/ Tazobactam Sod 50 ml @ 100 mls/hr Q6H IV 01/25/18 19:00 01/26/18 05:37 Vancomycin HCl 1500 mg/Sodium Chloride 515 ml @ 250 mls/hr Q24H IV 01/27/18 10:00 ([facility] Ordered Lab Info) SPECIFIC LAB TO BE DRAWN:VANCOMYCIN TROUGH DATE TO... ONCE ONCE .XX 01/29/18 09:45 01/29/18 09:46 Family History Mother in her late 80s, father in his late 40s of unknown causes. She has 3 other siblings who are all alive and healthy. One brother also has sarcoidosis. . Substance Use Tobacco: Lifetime non-smoker. Alcohol: Rare alcohol use. Prescription med abuse: No prescription drug abuse. Illicits: No illicit drug use. . 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 She never nor had children. She remained at home with her brother to take care of her aging mother until she passed. After she passed, she and her brother decided to move south to [place] for better whether. She continues to live with her brother. . Spiritual/Cultural Factors She is of the Taoism saloni and a monotyper has been contacted for sacrament of the sick. . Living Will: Never completed Health Care Surrogate: Never completed Durable Power of Deputy Brand Inspector: Never completed Date completed: Not completed. . Health Care Surrogate(s): Not completed. . Documented care wishes: She made herself a DO NOT RESUSCITATE status at her previous emergency department visit. . Today's verbally stated goals: Patient is obtunded and unable to speak. . Family/friends goals: Brother stated that he would try to do anything to resuscitate her, but is aware that this would mean that she would remain on a ventilator, which he states is an unacceptable outcome. While upset, he agrees that this is in she would not wish resuscitation. . Ethical and Legal Issues None noted. . Physical Exam Vital Signs Date Time Temp Pulse Resp B/P (MAP) Pulse Ox O2 Delivery O2 Flow Rate FiO2 01/26/18 11:41 96 85 01/26/18 10:00 91 01/26/18 08:00 90 01/26/18 08:00 97.0 90 20 98/52 (67) 96 01/26/18 07:50 96 85 01/26/18 07:50 94 BiPAP 85 01/26/18 06:00 91 01/26/18 04:30 97 100 01/26/18 04:00 96.1 70 20 99/56 (70) 95 01/26/18 04:00 88 01/26/18 02:00 85 01/26/18 01:08 97.7 93 20 113/60 (77) 94 01/26/18 01:05 94 100 01/26/18 00:55 96 01/25/18 23:22 100 18 113/63 (80) 94 BiPAP 01/25/18 20:40 90 100 01/25/18 18:36 106 22 101/59 (73) 93 BiPAP 50 01/25/18 18:21 93 BiPAP 50 01/25/18 18:08 90 50 01/25/18 17:23 96 Non-Rebreather 15.00 100 01/25/18 17:01 98.7 115 31 130/72 (91) 96 Non-Rebreather 01/25/18 17:00 96 Non-Rebreather 01/25/18 16:45 117 33 95 Non-Rebreather 01/25/18 16:42 98.7 117 33 130/72 (91) 95 Non-Rebreather 01/25/18 16:38 98.7 118 33 130/72 (91) 94 Exam CONSTITUTIONAL/GENERAL: This is an adequately nourished patient, in no apparent distress. TUBES/LINES/DRAINS: PIV right wrist SKIN: No jaundice, rashes, or lesions. Ecchymoses on upper extremities. No wounds seen anteriorly. Skin temperature appropriate. Not diaphoretic. HEAD: Atraumatic. Normocephalic. EYES: Pupils equal and round and reactive. No scleral icterus. No injection or drainage. Fundi not examined. ENT: Nose without bleeding or purulent drainage. Throat without visible erythema, exudates, masses, or lesions. NECK: Trachea midline. Supple. No palpable thyroid enlargement or nodularity. CARDIOVASCULAR: Regular rate and rhythm without murmurs, gallops, or rubs. No JVD. Peripheral pulses symmetric. RESPIRATORY/CHEST: Symmetric, unlabored respirations. Rare wheeze, on BiPAP. GASTROINTESTINAL: Abdomen soft, non-tender, nondistended. No hepato-splenomegaly , or palpable masses. No guarding. Bowel sounds present. GENITOURINARY: Without palpable bladder distension. Garner catheter in place. MUSCULOSKELETAL: Without clubbing or cyanosis. 2-3+ pitting peripheral edema bilateral lower extremities. Obtunded, on BiPAP. LYMPHATICS: No palpable cervical or supraclavicular adenopathy. NEUROLOGICAL: Obtunded. On BiPAP PSYCHIATRIC: Obtunded. . Diagnostic Tests Laboratory Laboratory Tests Test 01/25/18 17:10 01/25/18 17:18 01/25/18 19:20 01/25/18 20:14 White Blood Count 9.1 TH/MM3 (4.0-11.0) Red Blood Count 4.56 MIL/MM3 (4.00-5.30) Hemoglobin 13.2 GM/DL (11.6-15.3) Hematocrit 41.6 % (35.0-46.0) Mean Corpuscular Volume 91.3 FL (80.0-100.0) Mean Corpuscular Hemoglobin 28.9 PG (27.0-34.0) Mean Corpuscular Hemoglobin Concent 31.6 % (32.0-36.0) Red Cell Distribution Width 15.0 % (11.6-17.2) Platelet Count 267 TH/MM3 (150-450) Mean Platelet Volume 9.8 FL (7.0-11.0) Neutrophils (%) (Auto) 87.2 % (16.0-70.0) Lymphocytes (%) (Auto) 4.0 % (9.0-44.0) Monocytes (%) (Auto) 7.9 % (0.0-8.0) Eosinophils (%) (Auto) 0.5 % (0.0-4.0) Basophils (%) (Auto) 0.4 % (0.0-2.0) Neutrophils # (Auto) 7.9 TH/MM3 (1.8-7.7) Lymphocytes # (Auto) 0.4 TH/MM3 (1.0-4.8) Monocytes # (Auto) 0.7 TH/MM3 (0-0.9) Eosinophils # (Auto) 0.0 TH/MM3 (0-0.4) Basophils # (Auto) 0.0 TH/MM3 (0-0.2) CBC Comment DIFF FINAL Differential Comment Prothrombin Time 10.3 SEC (9.8-11.6) Prothromb Time International Ratio 1.0 RATIO Activated Partial Thromboplast Time 24.4 SEC (24.3-30.1) Blood Urea Nitrogen 28 MG/DL (7-18) Creatinine 0.97 MG/DL (0.50-1.00) Random Glucose 128 MG/DL (74-106) Total Protein 7.5 GM/DL (6.4-8.2) Albumin 3.4 GM/DL (3.4-5.0) Calcium Level 9.9 MG/DL (8.5-10.1) Alkaline Phosphatase 78 U/L (45-117) Aspartate Amino Transf (AST/SGOT) 24 U/L (15-37) Alanine Aminotransferase (ALT/SGPT) 30 U/L (10-53) Total Bilirubin 0.3 MG/DL (0.2-1.0) Sodium Level 140 MEQ/L (136-145) Potassium Level 4.2 MEQ/L (3.5-5.1) Chloride Level 92 MEQ/L (98-107) Carbon Dioxide Level 42.7 MEQ/L (21.0-32.0) Anion Gap 5 MEQ/L (5-15) Estimat Glomerular Filtration Rate 56 ML/MIN (>89) Total Creatine Kinase 59 U/L (26-192) Troponin I 0.10 NG/ML (0.02-0.05) 0.10 NG/ML (0.02-0.05) B-Type Natriuretic Peptide 1029 PG/ML (0-100) Blood Gas Puncture Site RT RADIAL RT RADIAL Blood Gas Patient Temperature 98.6 98.6 Blood Gas HCO3 44 mmol/L (22-26) 46 mmol/L (22-26) Blood Gas Base Excess 16.3 mmol/L (-2-2) 16.2 mmol/L (-2-2) Blood Gas Oxygen Saturation 96 % (90-100) 85 % (90-100) Arterial Blood pH 7.23 (7.380-7.420) 7.11 (7.380-7.420) Arterial Blood Partial Pressure CO2 109 mmHg (38-42) 152 mmHg (38-42) Arterial Blood Partial Pressure O2 107 mmHG (61-120) 65 mmHG (61-120) Arterial Blood Oxygen Content 17.6 Vol % (12.0-20.0) 16.2 Vol % (12.0-20.0) Arterial Blood Carboxyhemoglobin 1.2 % (0-4) 1.1 % (0-4) Arterial Blood Methemoglobin 0.7 % (0-2) 0.7 % (0-2) Blood Gas Hemoglobin 13.0 G/DL (12.0-16.0) 13.6 G/DL (12.0-16.0) Oxygen Delivery Device Non-Rebreathing Mask BiPAP Blood Gas Liter Flow 15 L/M Blood Gas Ventilator Setting [id number]/[id number] Blood Gas Inspired Oxygen 100 % Test 01/26/18 01:00 01/26/18 05:30 Nasal Screen MRSA (PCR) MRSA NOT DETECTED (NOT White Blood Count 14.6 TH/MM3 (4.0-11.0) Red Blood Count 4.80 MIL/MM3 (4.00-5.30) Hemoglobin 13.7 GM/DL (11.6-15.3) Hematocrit 45.4 % (35.0-46.0) Mean Corpuscular Volume 94.5 FL (80.0-100.0) Mean Corpuscular Hemoglobin 28.5 PG (27.0-34.0) Mean Corpuscular Hemoglobin Concent 30.2 % (32.0-36.0) Red Cell Distribution Width 15.6 % (11.6-17.2) Platelet Count 307 TH/MM3 (150-450) Mean Platelet Volume 9.5 FL (7.0-11.0) Neutrophils (%) (Auto) 91.1 % (16.0-70.0) Lymphocytes (%) (Auto) 2.3 % (9.0-44.0) Monocytes (%) (Auto) 6.6 % (0.0-8.0) Eosinophils (%) (Auto) 0.0 % (0.0-4.0) Basophils (%) (Auto) 0.0 % (0.0-2.0) Neutrophils # (Auto) 13.3 TH/MM3 (1.8-7.7) Lymphocytes # (Auto) 0.3 TH/MM3 (1.0-4.8) Monocytes # (Auto) 1.0 TH/MM3 (0-0.9) Eosinophils # (Auto) 0.0 TH/MM3 (0-0.4) Basophils # (Auto) 0.0 TH/MM3 (0-0.2) CBC Comment DIFF FINAL Differential Comment Blood Urea Nitrogen 33 MG/DL (7-18) Creatinine 1.52 MG/DL (0.50-1.00) Random Glucose 179 MG/DL (74-106) Total Protein 7.7 GM/DL (6.4-8.2) Albumin 3.3 GM/DL (3.4-5.0) Calcium Level 9.5 MG/DL (8.5-10.1) Phosphorus Level 8.6 MG/DL (2.5-4.9) Magnesium Level 3.0 MG/DL (1.5-2.5) Alkaline Phosphatase 118 U/L (45-117) Aspartate Amino Transf (AST/SGOT) 96 U/L (15-37) Alanine Aminotransferase (ALT/SGPT) 81 U/L (10-53) Total Bilirubin 0.8 MG/DL (0.2-1.0) Sodium Level 140 MEQ/L (136-145) Potassium Level 4.7 MEQ/L (3.5-5.1) Chloride Level 92 MEQ/L (98-107) Carbon Dioxide Level 43.2 MEQ/L (21.0-32.0) Anion Gap 5 MEQ/L (5-15) Estimat Glomerular Filtration Rate 34 ML/MIN (>89) Troponin I 0.11 NG/ML (0.02-0.05) Result Diagram: 01/26/1852901/26/1830 Microbiology Microbiology Date/Time Source Procedure Growth Status 01/25/18 19:35 Blood Peripheral Aerobic Blood Culture - Preliminary NO GROWTH IN 1 DAY Resulted 01/25/18 19:35 Blood Peripheral Anaerobic Blood Culture - Preliminary NO GROWTH IN 1 DAY Resulted 01/25/18 19:20 Blood Peripheral Aerobic Blood Culture - Preliminary NO GROWTH IN 1 DAY Resulted 01/25/18 19:20 Blood Peripheral Anaerobic Blood Culture - Preliminary NO GROWTH IN 1 DAY Resulted Imaging Last Impressions Chest X-Ray 01/25/18 5712 Signed Impressions: Service Date/Time: Thursday, January 25, 2018 17:08 - CONCLUSION: Slight interval worsening in aeration. Lele Butler MD Patient/Family Conference Present at Family Conference: Her brother, Sohan, was at her bedside since last evening at admission. He has contacted his sister and brother and they are en route to [place] now. One [facility] and one brother is scheduled to arrive tomorrow. Palliative care meeting scheduled for later today once sister arrives. Brother has been provided contact information. Reviewed palliative care purpose and focus, patient's past medical, social, psychosocial and family history. Reviewed the below listed items. Provided supportive listening for life review. Clergy support has been offered. Family Conference Location: Bedside Issues Discussed: * Palliative care role, purpose, approach * Additional medical, psychosocial, and spiritual history * Patients general health, functional status, and cognitive changes in the months leading up to the current hospitalization * Patient/family understanding of the current medical problems * Patient/family understanding of prognosis * Patients goals of care as best understood from advance directives and/or conversations and/or values * Current medical treatment options and benefits/burdens of those options * Likely scenarios comparing ongoing aggressive care with a transition to comfort measures only * Questions answered to the best of my ability * Palliative care contact information provided Assessment and Plan Disease Oriented Problem List: (1) Acute respiratory failure with hypoxia and hypercarbia (2) Sarcoidosis Symptom Scale: (1) Dyspnea and respiratory abnormalities 0-10 Scale: Unable to quantify (Obtunded) (2) Encephalopathy 0-10 Scale: Unable to quantify (Obtunded) Pertinent Non-Medical Issues Psychosocial:She was born and brought up in [place] where 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 She never nor had children. She remained at home with her brother to take care of her aging mother until she passed. After she passed, she and her brother decided to move south to [place] for better whether. She continues to live with her brother. Spiritual: Taoism saloni. Legal: She is a DNR status. Ethical issues impacting care: None noted. . Important Contacts Brother: Sohan Yarbrough . Prognosis Her prognosis is very poor. She has sarcoidosis and is a chronic carbon dioxide retainer. At this time she is end-stage lung disease both hypoxic and hypercarbic. She is obtunded due to the level of hypercarbia and has refused intubation or BiPAP. She became unresponsive in the emergency room and her brother did approve BiPAP to try and allow family time to arrive, however per my discussion with Dr. Dr. Franklin, her time is very short and will likely pass within the next 24 hours. . Code Status: No Code Plan PLAN: Legal decision maker: Patient is not capacitated to make her own decisions at this time. She had previously made herself a DO NOT RESUSCITATE in the presence of her brother, and he is agreeable to abide by her wishes. She has no spouse or children so by [place] statutes, without a healthcare surrogate designation, legal decision maker would be the majority of her adult siblings. Her brother, client, states he has spoken with his siblings and they are agreeable with her decision. Goals: Comfort oriented CODE STATUS: DNR SYMPTOMS: * Dyspnea: She has end-stage lung disease likely caused by sarcoidosis as she has no other risk factors. 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 It was her wish not to undergo intubation or aggressive measures, as her disease is chronic and progressive. She is on BiPAP until family arrives, but may not survive that long. She is receiving oxygen via BiPAP, DuoNeb, Solu-Medrol, Zosyn and vancomycin. She is receiving supportive care only. * Encephalopathy: Her last carbon dioxide level was measured at greater than 150 and it the likely cause of her encephalopathy. This is not likely to improve as she has declined all aggressive measures. Patient appears to be end- of-life. SUMMARY This is a 72 year old female with a past medical history of sarcoidosis which has resulted in end-stage hypercarbic and hypoxic respiratory failure. She has made herself a DO NOT RESUSCITATE. She is obtunded, likely secondary to hypercarbia and her family is honoring her wishes for no aggressive resuscitative efforts. Her prognosis is hours to days. Palliative care will continue to follow the patient during hospital course as condition evolves, to assist patient/decision-maker with understanding of their medical conditions, weighing benefits/burdens of treatment options, for clarification of goals of treatment. Additionally will assist with any symptoms of palliative concern. . Thank you for the opportunity to participate in the care of Ms. Yarbrough. Attestation To help prompt me to consider important information that might be impacting today's encounter and assessment, information from prior notes written by myself or my colleagues may have been "brought forward" into today's note. My signature on this note, however, is an attestation that I personally performed the exam, history, and/or decision-making noted today, and, unless otherwise indicated, the interactions with patient, family, and staff as well as the review of records all occurred today. I also attest that the listed assessment and stated plan reflect my best clinical judgment today based on the combination of historical information, prior notes, and today's exam/ interactions. When time spent is documented, it refers only to time spent today by the signer, or if indicated, combined time spent today by collaborating physician/nurse practitioner. . Myranda Bear January 26, 2018 12:45
--- NOTE | 2018-01-26 16:07 | HHI.CCPN ---
Subjective Remarks/Hospital Course 01/25: 72-year-old lady with history of sarcoidosis and end-stage lung disease, on home oxygen at 5 L, now comes in with worsening shortness of breath over the last 2 days associated with worsening mental status. History is obtained from brother who is present at bedside. Over the last week patient had gradual worsening shortness of breath, associated with nonproductive cough for which she presented on Wednesday to [place] emergency department. She was given lasix, breathing treatment and patient left home. Over the last 2 days patient had gradual worsening in her condition, being more sleepy than usual and with worsening shortness of breath, which prompted ED presentation. On ED arrival, patient was lethargic, arousable. Blood gas done showed significant hypercapnia. ED attending discussed with brother present at bedside about intubation and mechanical ventilation and brother expressed that based on patient's prior wishes she would not want, therefore patient was placed on BiPAP and [facility] was consulted for ICU admission. Patient was seen in ED, lethargic, arousable, following some commands, on BiPAP. Brother present at bedside providing history. Of note, patient was given Lasix, Solu-Medrol, magnesium and bronchodilators. 01/26: Patient seen earlier this morning. No events over the night. Patient remains lethargic, unarousable, on BiPAP. Brother present at bedside. Objective Vital Signs Date Time Temp Pulse Resp B/P (MAP) Pulse Ox O2 Delivery O2 Flow Rate FiO2 01/26/18 14:00 93 01/26/18 12:00 96.8 22 85/56 (66) 96 01/26/18 11:41 85 01/26/18 07:50 BiPAP 01/25/18 17:23 15.00 Intake and Output 01/26/18 01/26/18 01/27/18 08:00 16:00 00:00 Intake Total 617.5 ml Output Total 200 ml Balance 417.5 ml Result Diagram: 01/26/18 0530 01/26/18 0530 Other Results Laboratory Tests Test 01/25/18 17:18 01/25/18 20:14 Blood Gas Puncture Site RT RADIAL RT RADIAL Blood Gas Patient Temperature 98.6 98.6 Blood Gas HCO3 44 mmol/L (22-26) 46 mmol/L (22-26) Blood Gas Base Excess 16.3 mmol/L (-2-2) 16.2 mmol/L (-2-2) Blood Gas Oxygen Saturation 96 % (90-100) 85 % (90-100) Arterial Blood pH 7.23 (7.380-7.420) 7.11 (7.380-7.420) Arterial Blood Partial Pressure CO2 109 mmHg (38-42) 152 mmHg (38-42) Arterial Blood Partial Pressure O2 107 mmHG (61-120) 65 mmHG (61-120) Arterial Blood Oxygen Content 17.6 Vol % (12.0-20.0) 16.2 Vol % (12.0-20.0) Arterial Blood Carboxyhemoglobin 1.2 % (0-4) 1.1 % (0-4) Arterial Blood Methemoglobin 0.7 % (0-2) 0.7 % (0-2) Blood Gas Hemoglobin 13.0 G/DL (12.0-16.0) 13.6 G/DL (12.0-16.0) Oxygen Delivery Device Non-Rebreathing Mask BiPAP Blood Gas Liter Flow 15 L/M Blood Gas Ventilator Setting IPAP20/EPAP5 Blood Gas Inspired Oxygen 100 % Imaging Last Impressions Chest X-Ray 01/25/18 1652 Signed Impressions: Service Date/Time: Thursday, January 25, 2018 17:08 - CONCLUSION: Slight interval worsening in aeration. Lele Butler MD Objective Remarks General - elderly lady, lethargic, unarousable, ill appearing HEENT - pupils equal, reactive, sclerae anicteric, neck supple, no rigidity, no neck vein distention CV - regular heart, no murmurs, tachycardic Chest - decreased breath sounds b/l, scattered wheezes, poor inspiratory Abdomen - soft, obese, non-tender, BS present Extremities - 3+ edema, + peripheral pulses, warm Neuro - lethargic, unarousable, does not follow any commands A/P Assessment and Plan 1. Acute on chronic hypercapnic and hypoxic respiratory failure -worsening despite noninvasive support 2. End-stage lung disease 3. Sarcoidosis 4. ? Congestive heart failure 5. Cannot rule out pneumonia 6. History of hypertension 7. History of hyperlipidemia 1. Continue BiPAP at current settings 2. Titrate O2 to keep SPO2 between 88 and 92% 3. Bronchodilators 4. Steroids 5. Lasix 6. Continue Vanco and Zosyn 7. N.p.o. 8. GI prophylaxis with famotidine 9. DVT prophylaxis with heparin 10. DNR per patient's wishes expressed by her brother. Discussed in detail patient's worsening condition with brother present at bedside and he understands and he wants to respect patient's wishes. He discussed with his siblings and they are all in agreement. I appreciate palliative care help. Alex Franklin MD January 26, 2018 16:07
[2018-01-26] MEDS: MONTELUKAST SODIUM 10 MG TAB PO SCH (19:58)
[2018-01-27] VITALS (24 sets, daily range): BP systolic 78–108; BP diastolic 51–66; PULSE 101–107; RESP 16–38; TEMP 98–98.5; O2SAT 69–99
[2018-01-27] MEDS: PIPERACIL-TAZO 3.375 GM PREMIX 50 ML IV SCH ×3 (00:13→15:54)
[2018-01-27] MEDS: CHLORHEXIDINE GLUCONATE 2 % 1 PACK (2 CLOTHS) TOP SCH (04:00)
[2018-01-27] MEDS: RESP: ALBUTEROL 2.5 MG/IPRATROPIUM 0.5 MG NEB (SCH) INH ×7 (04:22→23:03)
[2018-01-27] MEDS: methylPREDNISolone SOD SUCC 125 MG/2 ML VIAL IV PUSH SCH ×3 (05:44→21:24)
--- NOTE | 2018-01-27 08:48 | HHI.CCPN ---
Subjective Remarks/Hospital Course 01/25: 72-year-old lady with history of sarcoidosis and end-stage lung disease, on home oxygen at 5 L, now comes in with worsening shortness of breath over the last 2 days associated with worsening mental status. History is obtained from brother who is present at bedside. Over the last week patient had gradual worsening shortness of breath, associated with nonproductive cough for which she presented on Wednesday to [place] emergency department. She was given lasix, breathing treatment and patient left home. Over the last 2 days patient had gradual worsening in her condition, being more sleepy than usual and with worsening shortness of breath, which prompted ED presentation. On ED arrival, patient was lethargic, arousable. Blood gas done showed significant hypercapnia. ED attending discussed with brother present at bedside about intubation and mechanical ventilation and brother expressed that based on patient's prior wishes she would not want, therefore patient was placed on BiPAP and [facility] was consulted for ICU admission. Patient was seen in ED, lethargic, arousable, following some commands, on BiPAP. Brother present at bedside providing history. Of note, patient was given Lasix, Solu-Medrol, magnesium and bronchodilators. 01/26: Patient seen earlier this morning. No events over the night. Patient remains lethargic, unarousable, on BiPAP. Brother present at bedside. 01/27: Patient is slightly more awake, opens eyes to voice stimuli but does not consistently follow commands. Plan was to withdraw care later today when another sibling comes in town. Objective Vital Signs Date Time Temp Pulse Resp B/P (MAP) Pulse Ox O2 Delivery O2 Flow Rate FiO2 01/27/18 07:29 93 85 01/27/18 06:00 101 01/27/18 04:25 BiPAP 01/27/18 04:00 98.4 16 82/52 (62) 01/25/18 17:23 15.00 Intake and Output 01/27/18 01/27/18 01/28/18 08:00 16:00 00:00 Intake Total 100 ml Output Total 0 ml Balance 100 ml Result Diagram: 01/26/18 0530 01/26/18 0530 Imaging Last Impressions Chest X-Ray 01/25/18 6012 Signed Impressions: Service Date/Time: Thursday, January 25, 2018 17:08 - CONCLUSION: Slight interval worsening in aeration. Lele Butler MD Objective Remarks General - elderly lady, lethargic, arousable, ill appearing HEENT - pupils are equal, and reactive, sclerae are anicteric, neck is supple, no rigidity, no JVD CV - regular S1 and S2, no murmurs Chest - still with decreased breath sounds b/l but improved compared to yesterday, no wheezes Abdomen - soft, obese, non-tender, BS present Extremities - 3+ edema, unchanged + peripheral pulses, warm Neuro - lethargic, arousable, does not consistently follow commands A/P Assessment and Plan 1. Acute on chronic hypercapnic and hypoxic respiratory failure -maximized on noninvasive support 2. End-stage lung disease 3. Sarcoidosis 4. ? Congestive heart failure 5. Cannot rule out pneumonia 6. History of hypertension 7. History of hyperlipidemia 1. Continue BiPAP at current settings 2. Titrate O2 to keep SPO2 between 88 and 92% 3. Bronchodilators 4. Steroids 5. Lasix 6. Continue Vanco and Zosyn 7. N.p.o. 8. GI prophylaxis with famotidine 9. DVT prophylaxis with heparin 10. DNR per patient's wishes expressed by her brother 11. ABG now I discussed with brother present at bedside in detail regarding patient's condition. We will check an arterial blood gas and if this shows significant improvement compared to last one and patient will show consistently clinical improvement we will probably give patient more time to recover. If not, possible withdrawal of care later today when another sibling comes in town. Appreciate palliative care help. Alex Franklin MD January 27, 2018 08:48
[2018-01-27] MEDS: HEPARIN SODIUM - SQ 10,000 UNITS/ML VIAL SQ SCH ×2 (09:00→21:25)
[2018-01-27] MEDS: BUDESONIDE-FORMOTEROL 160/4.5 MCG INHALER INH SCH ×2 (09:00→21:00)
[2018-01-27] MEDS: FUROSEMIDE 40 MG/4 ML VIAL IV PUSH SCH (09:36)
[2018-01-27] MEDS: FAMOTIDINE 20 MG/2 ML VIAL IV PUSH SCH ×2 (09:37→21:24)
[2018-01-27] MEDS: SODIUM CHLORIDE 0.9% FLUSH 10 ML FLUSH IVF PRN (09:38)
[2018-01-27] MEDS ORDERED: VANCOMYCIN INJ 1,500 MG in SODIUM CHLORID 0.9% 500 ML INJ 500 ML IV SCH (10:00)
[2018-01-27 11:13] LABS: AUTOMATED NEUTROPHIL # 12.7 TH/MM3 (1.8-7.7); BASOPHIL % 0.1 % (0.0-2.0); HEMATOCRIT 40.2 % (35.0-46.0); HEMOGLOBIN 12.6 GM/DL (11.6-15.3); LYMPH % 1.5 % (9.0-44.0); LYMPHOCYTE # 0.2 TH/MM3 (1.0-4.8); MEAN CELL VOLUME 90.9 FL (80.0-100.0); MEAN CORPUSCULAR HEMOGLOBIN 28.4 PG (27.0-34.0); MEAN CORPUSCULAR HGB CONC 31.2 % (32.0-36.0); MEAN PLATELET VOLUME 9.6 FL (7.0-11.0); MONO % 8.2 % (0.0-8.0); MONOCYTE # 1.2 TH/MM3 (0-0.9); NEUT % 90.2 % (16.0-70.0); PLATELET COUNT 230 TH/MM3 (150-450); RED BLOOD COUNT 4.43 MIL/MM3 (4.00-5.30); RED CELL DISTRIBUTION WIDTH 14.9 % (11.6-17.2); WHITE BLOOD COUNT 14.1 TH/MM3 (4.0-11.0)
[2018-01-27 11:34] LABS: ALT (GPT) 67 U/L (10-53); AST (GOT) 56 U/L (15-37); BICARBONATE 37.1 MEQ/L (21.0-32.0); BLOOD UREA NITROGEN 59 MG/DL (7-18); CALCIUM 8.6 MG/DL (8.5-10.1); CHLORIDE 90 MEQ/L (98-107); CREATININE 3.37 MG/DL (0.50-1.00); GLOMERULAR FILTRATION RATE 13 ML/MIN (>89); GLUCOSE,RANDOM 115 MG/DL (74-106); MAGNESIUM 2.8 MG/DL (1.5-2.5); SODIUM (NA) 139 MEQ/L (136-145)
[2018-01-27 11:35] LABS: ALKALINE PHOSPHATASE 73 U/L (45-117); TOTAL BILIRUBIN ADULT 0.5 MG/DL (0.2-1.0); TOTAL PROTEIN 6.8 GM/DL (6.4-8.2)
[2018-01-27] MEDS: DEXT 5%-NACL 0.45% 1000 ML INJ 1,000 ML IV SCH (15:27)
--- NOTE | 2018-01-27 17:11 | HHI.HCPN ---
Reason for visit a. To assist with evaluation and management of symptoms including: Dyspnea, encephalopathy b. To assist medical decision maker(s) with: better understanding of current medical conditions; weighing benefits/burdens of medical treatment options; making medical treatment decisions. . Subjective/Interval History Palliative care follow-up for further clarifications of goals of care. Patient seen in medical ICU, remains on BiPAP. ABG earlier this morning revealing improvement in PCO2, 96 from 152 on 01/25/18. Patient appears tired, briefly opening eyes to verbal stimuli. Family reports that patient is much more awake and interactive than yesterday. Laboratory workup today revealing leukocytosis 14.1, Hgb stable at 12.6. Renal function worsening, BUN/creatinine 59/3.37 from 33/1.52. Marginal urinary output. Blood cultures 01/25/18 with no growth in 2 days. Vital signs appear stable. Case discussed with Dr. Franklin and bedside RN Candi. . Family/friend interactions Met with patient's family. In attendance patient's brother Sohan, sister Kirsten and brother Dat who just arrived from [place]. Medical update provided. Reviewed patient's past medical history, events leading to this hospitalization, clinical course and current medical management. Share concerns of patient's clinical condition given end-stage lung disease with sarcoidosis, COPD. Reviewed recommendations from attending Dr. Franklin to allowed 24-48 hrs for clinical improvement. Family reiterated no CODE STATUS. Hospice philosophy and benefits introduced. . Advance Directives Living Will: Never completed Health Care Surrogate: Never completed Durable Power of Trust And Estates Paralegal: Never completed Advance Directive Specifics Date completed: Not completed. . Health Care Surrogate(s): Family reports that no advanced directives completed. Patient is single. no children, both parents are . As per [place] statue, healthcare proxy decision making falls to the majority of patient's siblings for which she has 5. . Documented care wishes: She made herself a DO NOT RESUSCITATE status at her previous emergency department visit. . Significant change in goals: Goals of therapy remain unchanged. . Objective Vital Signs Date Time Temp Pulse Resp B/P (MAP) Pulse Ox O2 Delivery O2 Flow Rate FiO2 01/27/18 15:53 95 75 01/27/18 12:06 93 80 01/27/18 07:29 93 85 01/27/18 06:00 101 01/27/18 04:25 99 BiPAP 85 01/27/18 04:25 99 85 01/27/18 04:00 102 01/27/18 04:00 98.4 101 16 82/52 (62) 69 01/27/18 02:00 102 01/27/18 00:00 101 01/27/18 00:00 98.4 104 31 78/51 (60) 70 01/26/18 23:48 98 85 01/26/18 22:00 102 01/26/18 20:43 85 100 01/26/18 20:00 97.7 101 38 77/45 (56) 74 01/26/18 20:00 101 01/26/18 18:00 99 Intake & Output 01/27/18 01/27/18 07:00 19:00 Intake Total 100 ml Output Total 0 ml Balance 100 ml Intake Oral 0 ml IV Total 100 ml Output Urine Total 0 ml # Bowel Movements 0 Physical Exam CONSTITUTIONAL/GENERAL: This is an adequately nourished patient, in no apparent distress. Ill looking. TUBES/LINES/DRAINS: PIV right wrist, BiPAP mask. SKIN: No jaundice, rashes, or lesions. Ecchymoses on upper extremities. No wounds seen anteriorly. Skin temperature appropriate. Not diaphoretic. HEAD: Atraumatic. Normocephalic. EYES: Pupils equal and round and reactive. No scleral icterus. No injection or drainage. Fundi not examined. ENT: Nose without bleeding or purulent drainage. Dry lips. NECK: Trachea midline. Supple. CARDIOVASCULAR: Regular rate and rhythm without murmurs, gallops, or rubs. No JVD. Peripheral pulses symmetric. RESPIRATORY/CHEST: Symmetric, unlabored respirations. Mild inspiratory wheeze, on BiPAP. GASTROINTESTINAL: Abdomen soft, non-tender, nondistended. No guarding. Bowel sounds present. GENITOURINARY: Without palpable bladder distension. MUSCULOSKELETAL: Without clubbing or cyanosis. 2-3+ pitting peripheral edema bilateral lower extremities. NEUROLOGICAL: Minimally responsive, on BiPAP. PSYCHIATRIC: Unable to assess given the above. . Diagnostic Tests Laboratory Laboratory Tests Test 01/25/18 17:10 01/25/18 17:18 01/25/18 19:20 01/25/18 20:14 White Blood Count 9.1 TH/MM3 (4.0-11.0) Red Blood Count 4.56 MIL/MM3 (4.00-5.30) Hemoglobin 13.2 GM/DL (11.6-15.3) Hematocrit 41.6 % (35.0-46.0) Mean Corpuscular Volume 91.3 FL (80.0-100.0) Mean Corpuscular Hemoglobin 28.9 PG (27.0-34.0) Mean Corpuscular Hemoglobin Concent 31.6 % (32.0-36.0) Red Cell Distribution Width 15.0 % (11.6-17.2) Platelet Count 267 TH/MM3 (150-450) Mean Platelet Volume 9.8 FL (7.0-11.0) Neutrophils (%) (Auto) 87.2 % (16.0-70.0) Lymphocytes (%) (Auto) 4.0 % (9.0-44.0) Monocytes (%) (Auto) 7.9 % (0.0-8.0) Eosinophils (%) (Auto) 0.5 % (0.0-4.0) Basophils (%) (Auto) 0.4 % (0.0-2.0) Neutrophils # (Auto) 7.9 TH/MM3 (1.8-7.7) Lymphocytes # (Auto) 0.4 TH/MM3 (1.0-4.8) Monocytes # (Auto) 0.7 TH/MM3 (0-0.9) Eosinophils # (Auto) 0.0 TH/MM3 (0-0.4) Basophils # (Auto) 0.0 TH/MM3 (0-0.2) CBC Comment DIFF FINAL Differential Comment Prothrombin Time 10.3 SEC (9.8-11.6) Prothromb Time International Ratio 1.0 RATIO Activated Partial Thromboplast Time 24.4 SEC (24.3-30.1) Blood Urea Nitrogen 28 MG/DL (7-18) Creatinine 0.97 MG/DL (0.50-1.00) Random Glucose 128 MG/DL (74-106) Total Protein 7.5 GM/DL (6.4-8.2) Albumin 3.4 GM/DL (3.4-5.0) Calcium Level 9.9 MG/DL (8.5-10.1) Alkaline Phosphatase 78 U/L (45-117) Aspartate Amino Transf (AST/SGOT) 24 U/L (15-37) Alanine Aminotransferase (ALT/SGPT) 30 U/L (10-53) Total Bilirubin 0.3 MG/DL (0.2-1.0) Sodium Level 140 MEQ/L (136-145) Potassium Level 4.2 MEQ/L (3.5-5.1) Chloride Level 92 MEQ/L (98-107) Carbon Dioxide Level 42.7 MEQ/L (21.0-32.0) Anion Gap 5 MEQ/L (5-15) Estimat Glomerular Filtration Rate 56 ML/MIN (>89) Total Creatine Kinase 59 U/L (26-192) Troponin I 0.10 NG/ML (0.02-0.05) 0.10 NG/ML (0.02-0.05) B-Type Natriuretic Peptide 1029 PG/ML (0-100) Blood Gas Puncture Site RT RADIAL RT RADIAL Blood Gas Patient Temperature 98.6 98.6 Blood Gas HCO3 44 mmol/L (22-26) 46 mmol/L (22-26) Blood Gas Base Excess 16.3 mmol/L (-2-2) 16.2 mmol/L (-2-2) Blood Gas Oxygen Saturation 96 % (90-100) 85 % (90-100) Arterial Blood pH 7.23 (7.380-7.420) 7.11 (7.380-7.420) Arterial Blood Partial Pressure CO2 109 mmHg (38-42) 152 mmHg (38-42) Arterial Blood Partial Pressure O2 107 mmHG (61-120) 65 mmHG (61-120) Arterial Blood Oxygen Content 17.6 Vol % (12.0-20.0) 16.2 Vol % (12.0-20.0) Arterial Blood Carboxyhemoglobin 1.2 % (0-4) 1.1 % (0-4) Arterial Blood Methemoglobin 0.7 % (0-2) 0.7 % (0-2) Blood Gas Hemoglobin 13.0 G/DL (12.0-16.0) 13.6 G/DL (12.0-16.0) Oxygen Delivery Device Non-Rebreathing Mask BiPAP Blood Gas Liter Flow 15 L/M Blood Gas Ventilator Setting IPAP20/EPAP5 Blood Gas Inspired Oxygen 100 % Test 01/26/18 01:00 01/26/18 05:30 01/27/18 09:44 01/27/18 10:58 Nasal Screen MRSA (PCR) MRSA NOT DETECTED (NOT White Blood Count 14.6 TH/MM3 (4.0-11.0) 14.1 TH/MM3 (4.0-11.0) Red Blood Count 4.80 MIL/MM3 (4.00-5.30) 4.43 MIL/MM3 (4.00-5.30) Hemoglobin 13.7 GM/DL (11.6-15.3) 12.6 GM/DL (11.6-15.3) Hematocrit 45.4 % (35.0-46.0) 40.2 % (35.0-46.0) Mean Corpuscular Volume 94.5 FL (80.0-100.0) 90.9 FL (80.0-100.0) Mean Corpuscular Hemoglobin 28.5 PG (27.0-34.0) 28.4 PG (27.0-34.0) Mean Corpuscular Hemoglobin Concent 30.2 % (32.0-36.0) 31.2 % (32.0-36.0) Red Cell Distribution Width 15.6 % (11.6-17.2) 14.9 % (11.6-17.2) Platelet Count 307 TH/MM3 (150-450) 230 TH/MM3 (150-450) Mean Platelet Volume 9.5 FL (7.0-11.0) 9.6 FL (7.0-11.0) Neutrophils (%) (Auto) 91.1 % (16.0-70.0) 90.2 % (16.0-70.0) Lymphocytes (%) (Auto) 2.3 % (9.0-44.0) 1.5 % (9.0-44.0) Monocytes (%) (Auto) 6.6 % (0.0-8.0) 8.2 % (0.0-8.0) Eosinophils (%) (Auto) 0.0 % (0.0-4.0) 0.0 % (0.0-4.0) Basophils (%) (Auto) 0.0 % (0.0-2.0) 0.1 % (0.0-2.0) Neutrophils # (Auto) 13.3 TH/MM3 (1.8-7.7) 12.7 TH/MM3 (1.8-7.7) Lymphocytes # (Auto) 0.3 TH/MM3 (1.0-4.8) 0.2 TH/MM3 (1.0-4.8) Monocytes # (Auto) 1.0 TH/MM3 (0-0.9) 1.2 TH/MM3 (0-0.9) Eosinophils # (Auto) 0.0 TH/MM3 (0-0.4) 0.0 TH/MM3 (0-0.4) Basophils # (Auto) 0.0 TH/MM3 (0-0.2) 0.0 TH/MM3 (0-0.2) CBC Comment DIFF FINAL DIFF FINAL Differential Comment Blood Urea Nitrogen 33 MG/DL (7-18) 59 MG/DL (7-18) Creatinine 1.52 MG/DL (0.50-1.00) 3.37 MG/DL (0.50-1.00) Random Glucose 179 MG/DL (74-106) 115 MG/DL (74-106) Total Protein 7.7 GM/DL (6.4-8.2) 6.8 GM/DL (6.4-8.2) Albumin 3.3 GM/DL (3.4-5.0) 3.0 GM/DL (3.4-5.0) Calcium Level 9.5 MG/DL (8.5-10.1) 8.6 MG/DL (8.5-10.1) Phosphorus Level 8.6 MG/DL (2.5-4.9) Magnesium Level 3.0 MG/DL (1.5-2.5) 2.8 MG/DL (1.5-2.5) Alkaline Phosphatase 118 U/L (45-117) 73 U/L (45-117) Aspartate Amino Transf (AST/SGOT) 96 U/L (15-37) 56 U/L (15-37) Alanine Aminotransferase (ALT/SGPT) 81 U/L (10-53) 67 U/L (10-53) Total Bilirubin 0.8 MG/DL (0.2-1.0) 0.5 MG/DL (0.2-1.0) Sodium Level 140 MEQ/L (136-145) 139 MEQ/L (136-145) Potassium Level 4.7 MEQ/L (3.5-5.1) 4.6 MEQ/L (3.5-5.1) Chloride Level 92 MEQ/L (98-107) 90 MEQ/L (98-107) Carbon Dioxide Level 43.2 MEQ/L (21.0-32.0) 37.1 MEQ/L (21.0-32.0) Anion Gap 5 MEQ/L (5-15) 12 MEQ/L (5-15) Estimat Glomerular Filtration Rate 34 ML/MIN (>89) 13 ML/MIN (>89) Troponin I 0.11 NG/ML (0.02-0.05) Blood Gas Puncture Site LT RADIAL Blood Gas Patient Temperature 98.6 Blood Gas HCO3 39 mmol/L (22-26) Blood Gas Base Excess 11.8 mmol/L (-2-2) Blood Gas Oxygen Saturation 94 % (90-100) Arterial Blood pH 7.24 (7.380-7.420) Arterial Blood Partial Pressure CO2 96 mmHg (38-42) Arterial Blood Partial Pressure O2 84 mmHg (61-120) Arterial Blood Oxygen Content 16.4 Vol % (12.0-20.0) Arterial Blood Carboxyhemoglobin 0.6 % (0-4) Arterial Blood Methemoglobin 1.5 % (0-2) Blood Gas Hemoglobin 12.4 G/DL (12.0-16.0) Oxygen Delivery Device BIPAP Blood Gas Ventilator Setting IPAP20/EPAP5/PS15 Blood Gas Inspired Oxygen 85 % Result Diagram: 01/27/18 1058 01/27/18 1058 Microbiology Microbiology Date/Time Source Procedure Growth Status 01/25/18 19:35 Blood Peripheral Aerobic Blood Culture - Preliminary NO GROWTH IN 2 DAYS Resulted 01/25/18 19:35 Blood Peripheral Anaerobic Blood Culture - Preliminary NO GROWTH IN 2 DAYS Resulted 01/25/18 19:20 Blood Peripheral Aerobic Blood Culture - Preliminary NO GROWTH IN 2 DAYS Resulted 01/25/18 19:20 Blood Peripheral Anaerobic Blood Culture - Preliminary NO GROWTH IN 2 DAYS Resulted Assessment and Plan Disease Oriented Problem List: (1) Acute respiratory failure with hypoxia and hypercarbia (2) Sarcoidosis (3) Congestive heart failure (4) Oxygen dependent Symptom Scale: (1) Dyspnea and respiratory abnormalities 0-10 Scale: Unable to quantify (Obtunded) (2) Encephalopathy 0-10 Scale: Unable to quantify (Obtunded) Pertinent Non-Medical Issues Psychosocial:She was born and brought up in [place] where 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 She never nor had children. She remained at home with her brother to take care of her aging mother until she passed. After she passed, she and her brother decided to move south to [place] for better whether. She continues to live with her brother. Spiritual: [employer]. Legal: She is a DNR status. Ethical issues impacting care: None noted. . Important Contacts Brother: Sohan Yarbrough Sister Kirsten Davila Sister Alma Maxwell -resides in [place] Brother Dat Yarbrough -resides in [place] Brother Melchor Yarbrough -resides in [place]/no family contact for many years. . Prognosis Her prognosis is very poor. She has sarcoidosis and is a chronic carbon dioxide retainer. At this time she is end-stage lung disease both hypoxic and hypercarbic. She is obtunded due to the level of hypercarbia and has refused intubation or BiPAP. She became unresponsive in the emergency room and her brother did approve BiPAP to try and allow family time to arrive, however per my discussion with Dr. Dr. Franklin, her time is very short and will likely pass within the next 24 hours. . Code Status: No Code Plan PLAN: * CODE STATUS: DNR/DNI. Community DNR signed by patient on 01/23/18. * HEALTHCARE DECISION-MAKING: Patient unable to participating medical decision making secondary to clinical condition, lethargy, encephalopathy. Unclear if she will regain capacity. No advance directives completed as per family. Patient is single, no biological children, both parents are . As per [place] statue, healthcare proxy decision making falls to the majority of patient's siblings for which she has 5 (Kirsten Parry, Alma, Dat and Melchor). * GOALS OF CARE: Siblings Kirsten Parry and Dat (3 of our 5 siblings) electing to continue conservative medical management short of NO cardiac resuscitation, NO intubation or mechanical ventilation. Family wishing to allow an additional 24-48 hours for clinical improvement. Family hoping for patient to regain medical decision-making capacity in order for her to participate in decision making. Hospice philosophy and benefits introduced. reviewed the role of hospice should patient's clinical condition does not improve or worsen in the setting of end-stage lung disease. Family not receptive to comfort-directed care conversation at this time. * SYMPTOMS: * Dyspnea: She has end-stage lung disease likely caused by sarcoidosis as she has no other risk factors. 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 It was her wish not to undergo intubation or aggressive measures, as her disease is chronic and progressive. Patient remains on BiPAP, PCO2 improved from 2 days ago. She is receiving oxygen via BiPAP, DuoNeb, Solu-Medrol, Zosyn and vancomycin. * Encephalopathy: Secondary to hypercapnia and hypoxia. Somewhat more alert and interactive than yesterday, however, remains very debilitated and confused. * Case discussed with Dr. Franklin and bedside RN Candi. * Palliative care contact information has been provided to patient and family. * Palliative care will continue to follow up for further clarification of goals of care as patient's clinical course continues to evolve. . Time Spent Total Floor Time (mins): 38 (Total time to include review of medical records, physical exam, goals of care conversation with patient's brother Dat, separate goals of care conversation with siblings Sohan and Kirsten, case discussion with attending and bedside RN.) >50% Counseling/Coord of Care: Yes Attestation To help prompt me to consider important information that might be impacting today's encounter and assessment, information from prior notes written by myself or my colleagues may have been "brought forward" into today's note. My signature on this note, however, is an attestation that I personally performed the exam, history, and/or decision-making noted today, and, unless otherwise indicated, the interactions with patient, family, and staff as well as the review of records all occurred today. I also attest that the listed assessment and stated plan reflect my best clinical judgment today based on the combination of historical information, prior notes, and today's exam/ interactions. When time spent is documented, it refers only to time spent today by the signer, or if indicated, combined time spent today by collaborating physician/nurse practitioner. Luly Brumfield January 27, 2018 17:11
[2018-01-27] MEDS: MONTELUKAST SODIUM 10 MG TAB PO SCH (21:00)
[2018-01-28] VITALS (16 sets, daily range): BP systolic 92–120; BP diastolic 55–79; PULSE 94–109; RESP 24–52; TEMP 98.2–98.3; O2SAT 87–99
[2018-01-28] MEDS: PIPERACIL-TAZO 2.25 GM PREMIX 50 ML IV SCH ×2 (00:49→08:00)
[2018-01-28] MEDS: DEXT 5%-NACL 0.45% 1000 ML INJ 1,000 ML IV SCH ×2 (00:49→12:20)
[2018-01-28] MEDS: RESP: ALBUTEROL 2.5 MG/IPRATROPIUM 0.5 MG NEB (SCH) INH ×3 (03:57→12:00)
[2018-01-28] MEDS: CHLORHEXIDINE GLUCONATE 2 % 1 PACK (2 CLOTHS) TOP SCH (04:00)
[2018-01-28] MEDS: methylPREDNISolone SOD SUCC 125 MG/2 ML VIAL IV PUSH SCH ×2 (05:46→14:00)
[2018-01-28 06:22] LABS: AUTOMATED NEUTROPHIL # 13.1 TH/MM3 (1.8-7.7); HEMATOCRIT 38.2 % (35.0-46.0); HEMOGLOBIN 12.2 GM/DL (11.6-15.3); LYMPH % 1.1 % (9.0-44.0); LYMPHOCYTE # 0.2 TH/MM3 (1.0-4.8); MEAN CELL VOLUME 88.2 FL (80.0-100.0); MEAN CORPUSCULAR HEMOGLOBIN 28.1 PG (27.0-34.0); MEAN CORPUSCULAR HGB CONC 31.8 % (32.0-36.0); MONO % 7.3 % (0.0-8.0); NEUT % 91.6 % (16.0-70.0); PLATELET COUNT 235 TH/MM3 (150-450); RED BLOOD COUNT 4.33 MIL/MM3 (4.00-5.30); RED CELL DISTRIBUTION WIDTH 14.8 % (11.6-17.2); WHITE BLOOD COUNT 14.3 TH/MM3 (4.0-11.0)
[2018-01-28 06:57] LABS: ALBUMIN 2.7 GM/DL (3.4-5.0); ALKALINE PHOSPHATASE 72 U/L (45-117); ALT (GPT) 61 U/L (10-53); AST (GOT) 52 U/L (15-37); BICARBONATE 35.1 MEQ/L (21.0-32.0); BLOOD UREA NITROGEN 77 MG/DL (7-18); CALCIUM 8.4 MG/DL (8.5-10.1); CHLORIDE 91 MEQ/L (98-107); CREATININE 4.19 MG/DL (0.50-1.00); GLOMERULAR FILTRATION RATE 10 ML/MIN (>89); GLUCOSE,RANDOM 153 MG/DL (74-106); MAGNESIUM 2.8 MG/DL (1.5-2.5); PHOSPHORUS 5.2 MG/DL (2.5-4.9); SODIUM (NA) 138 MEQ/L (136-145); TOTAL BILIRUBIN ADULT 0.5 MG/DL (0.2-1.0); TOTAL PROTEIN 6.6 GM/DL (6.4-8.2)
[2018-01-28 08:44] LABS: AMORPHOUS SEDIMENT, URINE OCC; BACTERIA, URINE MANY /hpf; BILIRUBIN, URINE NEG (NEG); BLOOD, URINE MOD (NEG); GLUCOSE,URINE NEG (NEG); KETONE, URINE NEG (NEG); MUCUS URINE FEW /lpf (OCC); NITRITE,URINE NEG (NEG); PH, URINE 5.5 (5.0-8.5); SQUAMOUS EPITHELIAL CELL URINE 4 /hpf (0-5); URINE LEUKOCYTE ESTERASE LARGE (NEG); WHITE BLOOD CELL CLUMPS MANY
[2018-01-28 08:47] LABS: URINE COLOR LIGHT-BROWN (YELLW/STRAW)
[2018-01-28] MEDS: HEPARIN SODIUM - SQ 10,000 UNITS/ML VIAL SQ SCH (09:00)
[2018-01-28] MEDS: FAMOTIDINE 20 MG/2 ML VIAL IV PUSH SCH (09:00)
[2018-01-28] MEDS: BUDESONIDE-FORMOTEROL 160/4.5 MCG INHALER INH SCH (09:00)
--- NOTE | 2018-01-28 10:38 | HHI.HCPN ---
Reason for visit a. To assist with evaluation and management of symptoms including: Dyspnea, encephalopathy b. To assist medical decision maker(s) with: better understanding of current medical conditions; weighing benefits/burdens of medical treatment options; making medical treatment decisions. . Subjective/Interval History Palliative care follow-up for further clarifications of goals of care. Patient has been on a BiPAP mask since admission and last night awoke and removed the mask herself, adamantly stating she did not wish any further aggressive treatment. She had previously declined the BiPAP mask, however it was placed at the request of her brother when she was obtunded to allow time for family to arrive. She is visibly dyspneic with shallow chest rise, symmetric, tachypneic, worsening with conversation, with frequent episodes of dozing off me in conversation. She is currently on a 100% nonrebreather mask saturating 94%. Her encephalopathy has improved with reduction of her carbon dioxide per blood gas, down to 96 from 152. She continues to doze off mid conversation, but her thoughts are clear, voice is strong and direct and she is able to make her needs known. She complains of pain from head to toe, throughout her entire body , which she states is from sarcoidosis. She states that her usual manner of managing her pain is oxygen, which provides some relief. She has she had previously only taking tramadol for pain, but states at this time the pain is severe enough to escalate to a stronger drug if necessary. This was discussed with Dr. Dr. Franklin at bedside, who explained to the family that the addition of stronger pain medication would indeed depress her respiratory rate and as she had dozed off mid conversation he would like to delay initiating more pain medicine until the family's goals have been clarified to comfort only. At this time, the only family at bedside Is her sister Kirsten and her nephew Ray. The patient stated that she wanted Sohan to be her decision maker. She is too weak at this time to sign a healthcare surrogate and all available family is deferring to Sohan's wishes. Case discussed with Dr. Franklin and bedside RN Candi. . Family/friend interactions 10: 00 spoke with sister Kirsten and nephew Ray at bedside. Patient was awake, alert and clearly stated she wanted no further aggressive measures to include BiPAP mask, labs or anything that would prolong her discomfort. Hospice was addressed with the patient however she dozed off mid conversation. Due to her intermittent encephalopathy, assisted decision-making is recommended at this time. The available family is in agreement with hospice and comfort measures, however as noted above, the patient has directed that Sohan be her decision maker and family meeting will be held until he and his brother Dat are available to discuss as a family and determine further goals. . Advance Directives Living Will: Never completed Health Care Surrogate: Never completed Durable Power of Alternative Financing Specialist: Never completed Advance Directive Specifics Date completed: Not completed. . Health Care Surrogate(s): Family reports that no advanced directives completed. Patient is single. no children, both parents are . As per [place] statue, healthcare proxy decision making falls to the majority of patient's siblings for which she has 5. . Documented care wishes: She made herself a DO NOT RESUSCITATE status at her previous emergency department visit. . Objective Vital Signs Date Time Temp Pulse Resp B/P (MAP) Pulse Ox O2 Delivery O2 Flow Rate FiO2 01/28/18 08:36 94 Non-Rebreather 12.00 01/28/18 06:00 109 01/28/18 04:00 98.3 109 39 112/74 (87) 97 01/28/18 04:00 109 01/28/18 03:58 95 Non-Rebreather 12.00 100 01/28/18 02:00 94 01/28/18 00:45 98 Non-Rebreather 12.00 100 01/28/18 00:12 99 75 01/28/18 00:00 98.2 101 26 116/65 (82) 98 01/28/18 00:00 101 01/27/18 22:00 107 01/27/18 20:15 92 BiPAP 75 01/27/18 20:00 98.5 104 30 104/66 (79) 85 01/27/18 20:00 104 01/27/18 20:00 95 Bi-Pap 75 01/27/18 19:28 92 75 01/27/18 18:00 105 37 102/61 (75) 99 01/27/18 18:00 105 01/27/18 17:00 104 01/27/18 17:00 104 26 102/55 (71) 98 01/27/18 16:00 103 01/27/18 16:00 98.0 103 35 105/58 (74) 94 01/27/18 15:53 95 75 01/27/18 15:00 104 01/27/18 15:00 104 38 103/63 (76) 97 01/27/18 14:00 105 01/27/18 14:00 105 29 98/64 (75) 99 01/27/18 13:00 101 36 96/58 (71) 97 01/27/18 13:00 101 01/27/18 12:06 93 80 01/27/18 12:00 101 31 93/55 (68) 96 01/27/18 12:00 101 01/27/18 11:00 101 01/27/18 11:00 101 34 93/66 (75) 88 Intake & Output 01/28/18 01/28/18 07:00 19:00 Intake Total 1615 ml Balance 1615 ml IV Total 1615 ml Physical Exam CONSTITUTIONAL/GENERAL: This is an adequately nourished patient, in no apparent distress. Ill looking. TUBES/LINES/DRAINS: PIV right wrist, 100% nonrebreather mask SKIN: No jaundice, rashes, or lesions. Ecchymoses on upper extremities. No wounds seen anteriorly. Skin temperature appropriate. Not diaphoretic. HEAD: Atraumatic. Normocephalic. EYES: Pupils equal and round and reactive. No scleral icterus. No injection or drainage. Fundi not examined. ENT: Nose without bleeding or purulent drainage. Dry lips. NECK: Trachea midline. Supple. CARDIOVASCULAR: Regular rate and rhythm without murmurs, gallops, or rubs. No JVD. Peripheral pulses symmetric. RESPIRATORY/CHEST: Symmetric, shallow, tachypneic respirations. Audible inspiratory wheeze. Yes GASTROINTESTINAL: Abdomen soft, non-tender, nondistended. No guarding. Bowel sounds present. GENITOURINARY: Without palpable bladder distension. MUSCULOSKELETAL: Faint cyanosis at nailbeds, 2-3+ pitting edema in lower extremities. NEUROLOGICAL: Alert, oriented, states her wishes and needs clearly, but dozes off easily minute conversation. PSYCHIATRIC: Calm, appropriate. . Diagnostic Tests Laboratory Laboratory Tests Test 01/25/18 17:10 01/25/18 17:18 01/25/18 19:20 01/25/18 20:14 White Blood Count 9.1 TH/MM3 (4.0-11.0) Red Blood Count 4.56 MIL/MM3 (4.00-5.30) Hemoglobin 13.2 GM/DL (11.6-15.3) Hematocrit 41.6 % (35.0-46.0) Mean Corpuscular Volume 91.3 FL (80.0-100.0) Mean Corpuscular Hemoglobin 28.9 PG (27.0-34.0) Mean Corpuscular Hemoglobin Concent 31.6 % (32.0-36.0) Red Cell Distribution Width 15.0 % (11.6-17.2) Platelet Count 267 TH/MM3 (150-450) Mean Platelet Volume 9.8 FL (7.0-11.0) Neutrophils (%) (Auto) 87.2 % (16.0-70.0) Lymphocytes (%) (Auto) 4.0 % (9.0-44.0) Monocytes (%) (Auto) 7.9 % (0.0-8.0) Eosinophils (%) (Auto) 0.5 % (0.0-4.0) Basophils (%) (Auto) 0.4 % (0.0-2.0) Neutrophils # (Auto) 7.9 TH/MM3 (1.8-7.7) Lymphocytes # (Auto) 0.4 TH/MM3 (1.0-4.8) Monocytes # (Auto) 0.7 TH/MM3 (0-0.9) Eosinophils # (Auto) 0.0 TH/MM3 (0-0.4) Basophils # (Auto) 0.0 TH/MM3 (0-0.2) CBC Comment DIFF FINAL Differential Comment Prothrombin Time 10.3 SEC (9.8-11.6) Prothromb Time International Ratio 1.0 RATIO Activated Partial Thromboplast Time 24.4 SEC (24.3-30.1) Blood Urea Nitrogen 28 MG/DL (7-18) Creatinine 0.97 MG/DL (0.50-1.00) Random Glucose 128 MG/DL (74-106) Total Protein 7.5 GM/DL (6.4-8.2) Albumin 3.4 GM/DL (3.4-5.0) Calcium Level 9.9 MG/DL (8.5-10.1) Alkaline Phosphatase 78 U/L (45-117) Aspartate Amino Transf (AST/SGOT) 24 U/L (15-37) Alanine Aminotransferase (ALT/SGPT) 30 U/L (10-53) Total Bilirubin 0.3 MG/DL (0.2-1.0) Sodium Level 140 MEQ/L (136-145) Potassium Level 4.2 MEQ/L (3.5-5.1) Chloride Level 92 MEQ/L (98-107) Carbon Dioxide Level 42.7 MEQ/L (21.0-32.0) Anion Gap 5 MEQ/L (5-15) Estimat Glomerular Filtration Rate 56 ML/MIN (>89) Total Creatine Kinase 59 U/L (26-192) Troponin I 0.10 NG/ML (0.02-0.05) 0.10 NG/ML (0.02-0.05) B-Type Natriuretic Peptide 1029 PG/ML (0-100) Blood Gas Puncture Site RT RADIAL RT RADIAL Blood Gas Patient Temperature 98.6 98.6 Blood Gas HCO3 44 mmol/L (22-26) 46 mmol/L (22-26) Blood Gas Base Excess 16.3 mmol/L (-2-2) 16.2 mmol/L (-2-2) Blood Gas Oxygen Saturation 96 % (90-100) 85 % (90-100) Arterial Blood pH 7.23 (7.380-7.420) 7.11 (7.380-7.420) Arterial Blood Partial Pressure CO2 109 mmHg (38-42) 152 mmHg (38-42) Arterial Blood Partial Pressure O2 107 mmHG (61-120) 65 mmHG (61-120) Arterial Blood Oxygen Content 17.6 Vol % (12.0-20.0) 16.2 Vol % (12.0-20.0) Arterial Blood Carboxyhemoglobin 1.2 % (0-4) 1.1 % (0-4) Arterial Blood Methemoglobin 0.7 % (0-2) 0.7 % (0-2) Blood Gas Hemoglobin 13.0 G/DL (12.0-16.0) 13.6 G/DL (12.0-16.0) Oxygen Delivery Device Non-Rebreathing Mask BiPAP Blood Gas Liter Flow 15 L/M Blood Gas Ventilator Setting IPAP20/EPAP5 Blood Gas Inspired Oxygen 100 % Test 01/26/18 01:00 5/9/18 05:30 01/27/18 09:44 01/27/18 10:58 Nasal Screen MRSA (PCR) MRSA NOT DETECTED (NOT White Blood Count 14.6 TH/MM3 (4.0-11.0) 14.1 TH/MM3 (4.0-11.0) Red Blood Count 4.80 MIL/MM3 (4.00-5.30) 4.43 MIL/MM3 (4.00-5.30) Hemoglobin 13.7 GM/DL (11.6-15.3) 12.6 GM/DL (11.6-15.3) Hematocrit 45.4 % (35.0-46.0) 40.2 % (35.0-46.0) Mean Corpuscular Volume 94.5 FL (80.0-100.0) 90.9 FL (80.0-100.0) Mean Corpuscular Hemoglobin 28.5 PG (27.0-34.0) 28.4 PG (27.0-34.0) Mean Corpuscular Hemoglobin Concent 30.2 % (32.0-36.0) 31.2 % (32.0-36.0) Red Cell Distribution Width 15.6 % (11.6-17.2) 14.9 % (11.6-17.2) Platelet Count 307 TH/MM3 (150-450) 230 TH/MM3 (150-450) Mean Platelet Volume 9.5 FL (7.0-11.0) 9.6 FL (7.0-11.0) Neutrophils (%) (Auto) 91.1 % (16.0-70.0) 90.2 % (16.0-70.0) Lymphocytes (%) (Auto) 2.3 % (9.0-44.0) 1.5 % (9.0-44.0) Monocytes (%) (Auto) 6.6 % (0.0-8.0) 8.2 % (0.0-8.0) Eosinophils (%) (Auto) 0.0 % (0.0-4.0) 0.0 % (0.0-4.0) Basophils (%) (Auto) 0.0 % (0.0-2.0) 0.1 % (0.0-2.0) Neutrophils # (Auto) 13.3 TH/MM3 (1.8-7.7) 12.7 TH/MM3 (1.8-7.7) Lymphocytes # (Auto) 0.3 TH/MM3 (1.0-4.8) 0.2 TH/MM3 (1.0-4.8) Monocytes # (Auto) 1.0 TH/MM3 (0-0.9) 1.2 TH/MM3 (0-0.9) Eosinophils # (Auto) 0.0 TH/MM3 (0-0.4) 0.0 TH/MM3 (0-0.4) Basophils # (Auto) 0.0 TH/MM3 (0-0.2) 0.0 TH/MM3 (0-0.2) CBC Comment DIFF FINAL DIFF FINAL Differential Comment Blood Urea Nitrogen 33 MG/DL (7-18) 59 MG/DL (7-18) Creatinine 1.52 MG/DL (0.50-1.00) 3.37 MG/DL (0.50-1.00) Random Glucose 179 MG/DL (74-106) 115 MG/DL (74-106) Total Protein 7.7 GM/DL (6.4-8.2) 6.8 GM/DL (6.4-8.2) Albumin 3.3 GM/DL (3.4-5.0) 3.0 GM/DL (3.4-5.0) Calcium Level 9.5 MG/DL (8.5-10.1) 8.6 MG/DL (8.5-10.1) Phosphorus Level 8.6 MG/DL (2.5-4.9) Magnesium Level 3.0 MG/DL (1.5-2.5) 2.8 MG/DL (1.5-2.5) Alkaline Phosphatase 118 U/L (45-117) 73 U/L (45-117) Aspartate Amino Transf (AST/SGOT) 96 U/L (15-37) 56 U/L (15-37) Alanine Aminotransferase (ALT/SGPT) 81 U/L (10-53) 67 U/L (10-53) Total Bilirubin 0.8 MG/DL (0.2-1.0) 0.5 MG/DL (0.2-1.0) Sodium Level 140 MEQ/L (136-145) 139 MEQ/L (136-145) Potassium Level 4.7 MEQ/L (3.5-5.1) 4.6 MEQ/L (3.5-5.1) Chloride Level 92 MEQ/L (98-107) 90 MEQ/L (98-107) Carbon Dioxide Level 43.2 MEQ/L (21.0-32.0) 37.1 MEQ/L (21.0-32.0) Anion Gap 5 MEQ/L (5-15) 12 MEQ/L (5-15) Estimat Glomerular Filtration Rate 34 ML/MIN (>89) 13 ML/MIN (>89) Troponin I 0.11 NG/ML (0.02-0.05) Blood Gas Puncture Site LT RADIAL Blood Gas Patient Temperature 98.6 Blood Gas HCO3 39 mmol/L (22-26) Blood Gas Base Excess 11.8 mmol/L (-2-2) Blood Gas Oxygen Saturation 94 % (90-100) Arterial Blood pH 7.24 (7.380-7.420) Arterial Blood Partial Pressure CO2 96 mmHg (38-42) Arterial Blood Partial Pressure O2 84 mmHg (61-120) Arterial Blood Oxygen Content 16.4 Vol % (12.0-20.0) Arterial Blood Carboxyhemoglobin 0.6 % (0-4) Arterial Blood Methemoglobin 1.5 % (0-2) Blood Gas Hemoglobin 12.4 G/DL (12.0-16.0) Oxygen Delivery Device BIPAP Blood Gas Ventilator Setting IPAP20/EPAP5/PS15 Blood Gas Inspired Oxygen 85 % Test 01/28/18 04:57 01/28/18 07:12 White Blood Count 14.3 TH/MM3 (4.0-11.0) Red Blood Count 4.33 MIL/MM3 (4.00-5.30) Hemoglobin 12.2 GM/DL (11.6-15.3) Hematocrit 38.2 % (35.0-46.0) Mean Corpuscular Volume 88.2 FL (80.0-100.0) Mean Corpuscular Hemoglobin 28.1 PG (27.0-34.0) Mean Corpuscular Hemoglobin Concent 31.8 % (32.0-36.0) Red Cell Distribution Width 14.8 % (11.6-17.2) Platelet Count 235 TH/MM3 (150-450) Mean Platelet Volume 10.0 FL (7.0-11.0) Neutrophils (%) (Auto) 91.6 % (16.0-70.0) Lymphocytes (%) (Auto) 1.1 % (9.0-44.0) Monocytes (%) (Auto) 7.3 % (0.0-8.0) Eosinophils (%) (Auto) 0.0 % (0.0-4.0) Basophils (%) (Auto) 0.0 % (0.0-2.0) Neutrophils # (Auto) 13.1 TH/MM3 (1.8-7.7) Lymphocytes # (Auto) 0.2 TH/MM3 (1.0-4.8) Monocytes # (Auto) 1.0 TH/MM3 (0-0.9) Eosinophils # (Auto) 0.0 TH/MM3 (0-0.4) Basophils # (Auto) 0.0 TH/MM3 (0-0.2) CBC Comment DIFF FINAL Differential Comment Blood Urea Nitrogen 77 MG/DL (7-18) Creatinine 4.19 MG/DL (0.50-1.00) Random Glucose 153 MG/DL (74-106) Total Protein 6.6 GM/DL (6.4-8.2) Albumin 2.7 GM/DL (3.4-5.0) Calcium Level 8.4 MG/DL (8.5-10.1) Phosphorus Level 5.2 MG/DL (2.5-4.9) Magnesium Level 2.8 MG/DL (1.5-2.5) Alkaline Phosphatase 72 U/L (45-117) Aspartate Amino Transf (AST/SGOT) 52 U/L (15-37) Alanine Aminotransferase (ALT/SGPT) 61 U/L (10-53) Total Bilirubin 0.5 MG/DL (0.2-1.0) Sodium Level 138 MEQ/L (136-145) Potassium Level 4.4 MEQ/L (3.5-5.1) Chloride Level 91 MEQ/L (98-107) Carbon Dioxide Level 35.1 MEQ/L (21.0-32.0) Anion Gap 12 MEQ/L (5-15) Estimat Glomerular Filtration Rate 10 ML/MIN (>89) Urine Color LIGHT-BROWN (YELLW/STRAW) Urine Turbidity CLOUDY (CLEAR) Urine pH 5.5 (5.0-8.5) Urine Specific [place] 1.020 (1.002-1.035) Urine Protein 30 mg/dL (NEG-TRACE) Urine Glucose (UA) NEG mg/dL (NEG) Urine Ketones NEG mg/dL (NEG) Urine Occult Blood MOD (NEG) Urine Nitrite NEG (NEG) Urine Bilirubin NEG (NEG) Urine Urobilinogen LESS THAN 2.0 MG/DL (LESS Urine Leukocyte Esterase LARGE (NEG) Urine RBC /hpf (0-3) Urine WBC 180 /hpf (0-5) Urine WBC Clumps MANY (NONE) Urine Squamous Epithelial Cells 4 /hpf (0-5) Urine Amorphous Sediment OCC Urine Bacteria MANY /hpf (NONE) Urine Mucus FEW /lpf (OCC) Microscopic Urinalysis Comment CATH-CULTURE IND Result Diagram: 01/28/18 0457 01/28/18 0457 Microbiology Microbiology Date/Time Source Procedure Growth Status 01/25/18 19:35 Blood Peripheral Aerobic Blood Culture - Preliminary NO GROWTH IN 2 DAYS Resulted 01/25/18 19:35 Blood Peripheral Anaerobic Blood Culture - Preliminary NO GROWTH IN 2 DAYS Resulted 01/25/18 19:20 Blood Peripheral Aerobic Blood Culture - Preliminary NO GROWTH IN 2 DAYS Resulted 01/25/18 19:20 Blood Peripheral Anaerobic Blood Culture - Preliminary NO GROWTH IN 2 DAYS Resulted 01/28/18 07:12 Urine Catheterized Urine Urine Culture Pending Received Imaging Made Last Impressions Chest X-Ray 01/25/18 1652 Signed Impressions: Service Date/Time: Thursday, January 25, 2018 17:08 - CONCLUSION: Slight interval worsening in aeration. 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 She never nor had children. She remained at home with her brother to take care of her aging mother until she passed. After she passed, she and her brother decided to move south to [place] for better whether. She continues to live with her brother. Spiritual: Scientologist saloni. Legal: She is a DNR status. Ethical issues impacting care: None noted. . Important Contacts Brother: Sohan Yarbrough Sister Kirsten Davila Sister Alma Maxwell -resides in [place] Brother Dat Yarbrough -resides in [place] Brother Melchor Yarbrough -resides in [place]/no family contact for many years. . Prognosis Her prognosis is very poor. She has sarcoidosis and is a chronic carbon dioxide retainer. At this time she is end-stage lung disease both hypoxic and hypercarbic. She is obtunded due to the level of hypercarbia and has refused intubation or BiPAP. She became unresponsive in the emergency room and her brother did approve BiPAP to try and allow family time to arrive, however per my discussion with Dr. Dr. Franklin, her time is very short and will likely pass within the next 24 hours. . Code Status: No Code Plan PLAN: * CODE STATUS: DNR/DNI. Community DNR signed by patient on 01/23/18. * HEALTHCARE DECISION-MAKING: patient is arousable, intermittently alert and able to make her needs known this morning. She states that she has completed a living will, but did not respond to the question regarding healthcare surrogate or DPOA. While awake, she was queried regarding her advanced directives and states her living will is on her desk and that she wants Sohan to be her healthcare surrogate. She is too weak at this time to sign and doses off and on. As per [place] statue, healthcare proxy decision making falls to the majority of patient's siblings for which she has 5 (Kirsten Parry, Alma, Dat and Melchor). At this time all family members are supporting Sohan as the decision -maker in accordance with the patient's verbally stated wishes. Patient is single, no biological children, both parents are . * GOALS OF CARE: Siblings Kirsten Parry and Dat (3 of our 5 siblings) electing to continue conservative medical management short of NO cardiac resuscitation, NO intubation or mechanical ventilation. Family wishing to allow an additional 24-48 hours for clinical improvement. Family hoping for patient to regain medical decision-making capacity in order for her to participate in decision making. Hospice philosophy and benefits introduced. reviewed the role of hospice should patient's clinical condition does not improve or worsen in the setting of end-stage lung disease. Family not receptive to comfort-directed care conversation at this time. * SYMPTOMS: * Dyspnea: She has end-stage lung disease likely caused by sarcoidosis as she has no other risk factors. 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 It was her wish not to undergo intubation or aggressive measures, as her disease is chronic and progressive. Patient removed her own BiPAP and is now on 100% NRB, CO2 now down to 96 from 152. Additionally, she is receiving DuoNeb, Solu-Medrol, Zosyn and vancomycin. * Encephalopathy: Secondary to hypercapnia and hypoxia. Somewhat more alert and interactive than yesterday, however, remains very debilitated and confused. * Case discussed with Dr. Franklin and bedside RN Candi. * Palliative care contact information has been provided to patient and family. * Palliative care will continue to follow up for further clarification of goals of care as patient's clinical course continues to evolve. . Attestation To help prompt me to consider important information that might be impacting today's encounter and assessment, information from prior notes written by myself or my colleagues may have been "brought forward" into today's note. My signature on this note, however, is an attestation that I personally performed the exam, history, and/or decision-making noted today, and, unless otherwise indicated, the interactions with patient, family, and staff as well as the review of records all occurred today. I also attest that the listed assessment and stated plan reflect my best clinical judgment today based on the combination of historical information, prior notes, and today's exam/ interactions. When time spent is documented, it refers only to time spent today by the signer, or if indicated, combined time spent today by collaborating physician/nurse practitioner. . Myranda Bear January 28, 2018 10:38 am
[2018-01-28] MEDS ORDERED: MORPHINE SULFATE 2 MG/ML SYRINGE IV PUSH PRN (12:00)
--- NOTE | 2018-01-28 12:04 | HHI.CCPN ---
Subjective Remarks/Hospital Course 01/25: 72-year-old lady with history of sarcoidosis and end-stage lung disease, on home oxygen at 5 L, now comes in with worsening shortness of breath over the last 2 days associated with worsening mental status. History is obtained from brother who is present at bedside. Over the last week patient had gradual worsening shortness of breath, associated with nonproductive cough for which she presented on Wednesday to [place] emergency department. She was given lasix, breathing treatment and patient left home. Over the last 2 days patient had gradual worsening in her condition, being more sleepy than usual and with worsening shortness of breath, which prompted ED presentation. On ED arrival, patient was lethargic, arousable. Blood gas done showed significant hypercapnia. ED attending discussed with brother present at bedside about intubation and mechanical ventilation and brother expressed that based on patient's prior wishes she would not want, therefore patient was placed on BiPAP and [facility] was consulted for ICU admission. Patient was seen in ED, lethargic, arousable, following some commands, on BiPAP. Brother present at bedside providing history. Of note, patient was given Lasix, Solu-Medrol, magnesium and bronchodilators. 01/26: Patient seen earlier this morning. No events over the night. Patient remains lethargic, unarousable, on BiPAP. Brother present at bedside. 01/27: Patient is slightly more awake, opens eyes to voice stimuli but does not consistently follow commands. Plan was to withdraw care later today when another sibling comes in town. 01/28: Patient is more awake today, with family around at bedside. Earlier patient took off the BiPAP and she expressed that she does want to focus only on comfort from now. Palliative care discussing about hospice with family. Patient complains of pain all over her whole body. On nonrebreather mask. Objective Vital Signs Date Time Temp Pulse Resp B/P (MAP) Pulse Ox O2 Delivery O2 Flow Rate FiO2 01/28/18 08:36 94 Non-Rebreather 12.00 01/28/18 06:00 109 01/28/18 04:00 98.3 39 112/74 (87) 01/28/18 03:58 100 Intake and Output 01/28/18 01/28/18 01/28/18 07:59 15:59 23:59 Intake Total 1050 ml Balance 1050 ml Result Diagram: 01/28/18 0457 01/28/18 0457 Imaging Last Impressions Chest X-Ray 01/25/18 1652 Signed Impressions: Service Date/Time: Thursday, January 25, 2018 17:08 - CONCLUSION: Slight interval worsening in aeration. Lele Butler MD Objective Remarks General - elderly lady, resting, easily arousable, ill appearing HEENT - pupils equal, and reactive, sclerae anicteric, neck supple, no rigidity , no JVD CV - regular heart sounds, no murmurs Chest - improved air entry bilateral, no wheezes Abdomen - soft, obese, non-tender, BS present Extremities - 3+ edema, + peripheral pulses, warm Neuro - easy arousable, follows commands A/P Assessment and Plan 1. Acute on chronic hypercapnic and hypoxic respiratory failure -was on BiPAP now on NRM 2. End-stage lung disease 3. Sarcoidosis 4. ? Congestive heart failure 5. Cannot rule out pneumonia 6. History of hypertension 7. History of hyperlipidemia Based on patient's wishes clearly expressed by her and by the surrounding family from this moment they would like to focus only on comfort. A page to palliative care nurse has been placed by patient's nurse to come discussed with the family and transition care to hospice. We will order morphine for pain control. Discussed in detail with patient, patient's brothers and sister present at bedside. We will comply with the patient's and family wishes. Appreciate palliative care help. Alex Franklin MD January 28, 2018 12:04
[2018-01-28] MEDS ORDERED: MORPHINE SULFATE 4 MG/ML INJ IV PUSH PRN (12:30)
--- NOTE | 2018-01-28 14:19 | HHI.DS ---
Discharge Summary Admission Date January 25, 2018 at 18:01 Discharge Date: January 28, 2018 Admitting Diagnosis HYPERCAPNEIC RESPIRATORY FAILURE, PNA, ENDSTAGE COPD Brief History 72-year-old lady with history of sarcoidosis and end-stage lung disease, on home oxygen at 5 L, now comes in with worsening shortness of breath over the last 2 days associated with worsening mental status. History is obtained from brother who is present at bedside. Over the last week patient had gradual worsening shortness of breath, associated with nonproductive cough for which she presented on Wednesday to [place] emergency department. She was given lasix, breathing treatment and patient left home. Over the last 2 days patient had gradual worsening in her condition, being more sleepy than usual and with worsening shortness of breath, which prompted ED presentation. On ED arrival, patient was lethargic, arousable. Blood gas done showed significant hypercapnia. ED attending discussed with brother present at bedside about intubation and mechanical ventilation and brother expressed that based on patient's prior wishes she would not want, therefore patient was placed on BiPAP and [facility] was consulted for ICU admission. Patient was seen in ED, lethargic, arousable, following some commands, on BiPAP. Brother present at bedside providing history. Of note, patient was given Lasix, Solu-Medrol, magnesium and bronchodilators. CBC/BMP: 01/28/18 0457 01/28/18 0457 Significant Findings Laboratory Tests Test 01/25/18 17:10 01/25/18 17:18 01/25/18 19:20 01/25/18 20:14 Mean Corpuscular Hemoglobin Concent 31.6 % (32.0-36.0) Neutrophils (%) (Auto) 87.2 % (16.0-70.0) Lymphocytes (%) (Auto) 4.0 % (9.0-44.0) Neutrophils # (Auto) 7.9 TH/MM3 (1.8-7.7) Lymphocytes # (Auto) 0.4 TH/MM3 (1.0-4.8) Blood Urea Nitrogen 28 MG/DL (7-18) Random Glucose 128 MG/DL (74-106) Chloride Level 92 MEQ/L (98-107) Carbon Dioxide Level 42.7 MEQ/L (21.0-32.0) Estimat Glomerular Filtration Rate 56 ML/MIN (>89) Troponin I 0.10 NG/ML (0.02-0.05) 0.10 NG/ML (0.02-0.05) B-Type Natriuretic Peptide 1029 PG/ML (0-100) Blood Gas HCO3 44 mmol/L (22-26) 46 mmol/L (22-26) Blood Gas Base Excess 16.3 mmol/L (-2-2) 16.2 mmol/L (-2-2) Arterial Blood pH 7.23 (7.380-7.420) 7.11 (7.380-7.420) Arterial Blood Partial Pressure CO2 109 mmHg (38-42) 152 mmHg (38-42) Blood Gas Oxygen Saturation 85 % (90-100) Test 01/26/18 01:00 01/26/18 05:30 01/27/18 09:44 01/27/18 10:58 White Blood Count 14.6 TH/MM3 (4.0-11.0) 14.1 TH/MM3 (4.0-11.0) Mean Corpuscular Hemoglobin Concent 30.2 % (32.0-36.0) 31.2 % (32.0-36.0) Neutrophils (%) (Auto) 91.1 % (16.0-70.0) 90.2 % (16.0-70.0) Lymphocytes (%) (Auto) 2.3 % (9.0-44.0) 1.5 % (9.0-44.0) Neutrophils # (Auto) 13.3 TH/MM3 (1.8-7.7) 12.7 TH/MM3 (1.8-7.7) Lymphocytes # (Auto) 0.3 TH/MM3 (1.0-4.8) 0.2 TH/MM3 (1.0-4.8) Monocytes # (Auto) 1.0 TH/MM3 (0-0.9) 1.2 TH/MM3 (0-0.9) Blood Urea Nitrogen 33 MG/DL (7-18) 59 MG/DL (7-18) Creatinine 1.52 MG/DL (0.50-1.00) 3.37 MG/DL (0.50-1.00) Random Glucose 179 MG/DL (74-106) 115 MG/DL (74-106) Albumin 3.3 GM/DL (3.4-5.0) 3.0 GM/DL (3.4-5.0) Phosphorus Level 8.6 MG/DL (2.5-4.9) Magnesium Level 3.0 MG/DL (1.5-2.5) 2.8 MG/DL (1.5-2.5) Alkaline Phosphatase 118 U/L (45-117) Aspartate Amino Transf (AST/SGOT) 96 U/L (15-37) 56 U/L (15-37) Alanine Aminotransferase (ALT/SGPT) 81 U/L (10-53) 67 U/L (10-53) Chloride Level 92 MEQ/L (98-107) 90 MEQ/L (98-107) Carbon Dioxide Level 43.2 MEQ/L (21.0-32.0) 37.1 MEQ/L (21.0-32.0) Estimat Glomerular Filtration Rate 34 ML/MIN (>89) 13 ML/MIN (>89) Troponin I 0.11 NG/ML (0.02-0.05) Blood Gas HCO3 39 mmol/L (22-26) Blood Gas Base Excess 11.8 mmol/L (-2-2) Arterial Blood pH 7.24 (7.380-7.420) Arterial Blood Partial Pressure CO2 96 mmHg (38-42) Monocytes (%) (Auto) 8.2 % (0.0-8.0) Test 01/28/18 04:57 01/28/18 07:12 White Blood Count 14.3 TH/MM3 (4.0-11.0) Mean Corpuscular Hemoglobin Concent 31.8 % (32.0-36.0) Neutrophils (%) (Auto) 91.6 % (16.0-70.0) Lymphocytes (%) (Auto) 1.1 % (9.0-44.0) Neutrophils # (Auto) 13.1 TH/MM3 (1.8-7.7) Lymphocytes # (Auto) 0.2 TH/MM3 (1.0-4.8) Monocytes # (Auto) 1.0 TH/MM3 (0-0.9) Blood Urea Nitrogen 77 MG/DL (7-18) Creatinine 4.19 MG/DL (0.50-1.00) Random Glucose 153 MG/DL (74-106) Albumin 2.7 GM/DL (3.4-5.0) Calcium Level 8.4 MG/DL (8.5-10.1) Phosphorus Level 5.2 MG/DL (2.5-4.9) Magnesium Level 2.8 MG/DL (1.5-2.5) Aspartate Amino Transf (AST/SGOT) 52 U/L (15-37) Alanine Aminotransferase (ALT/SGPT) 61 U/L (10-53) Chloride Level 91 MEQ/L (98-107) Carbon Dioxide Level 35.1 MEQ/L (21.0-32.0) Estimat Glomerular Filtration Rate 10 ML/MIN (>89) Urine Color LIGHT-BROWN (YELLW/STRAW) Urine Turbidity CLOUDY (CLEAR) Urine Protein 30 mg/dL (NEG-TRACE) Urine Occult Blood MOD (NEG) Urine Leukocyte Esterase LARGE (NEG) Urine WBC 180 /hpf (0-5) Urine WBC Clumps MANY (NONE) Urine Bacteria MANY /hpf (NONE) Urine Mucus FEW /lpf (OCC) Imaging Last Impressions Chest X-Ray 01/25/18 1652 Signed Impressions: Service Date/Time: Thursday, January 25, 2018 17:08 - CONCLUSION: Slight interval worsening in aeration. Lele Butler MD PE at Discharge General - elderly lady, resting, easily arousable, ill appearing HEENT - pupils equal, and reactive, sclerae anicteric, neck supple, no rigidity , no JVD CV - regular heart sounds, no murmurs Chest - improved air entry bilateral, no wheezes Abdomen - soft, obese, non-tender, BS present Extremities - 3+ edema, + peripheral pulses, warm Neuro - easy arousable, follows commands Transfer Summary Patient was treated for acute on chronic hypercapnic and hypoxic respiratory failure secondary to sarcoidosis and possible congestive heart failure with BiPAP, steroids, diuretics, and antibiotics for possible pneumonia. Patient was not intubated in order to respect patient's and family wishes. Despite 48 hours of full support patient continued to deteriorate developing renal failure. Based on patient's wishes clearly expressed by her and by the surrounding family from this moment they decided to focus only on comfort. Palliative care discussed with patient and family regarding hospice and patient will be discharged on hospice. Hospital Course 01/25: 72-year-old lady with history of sarcoidosis and end-stage lung disease, on home oxygen at 5 L, now comes in with worsening shortness of breath over the last 2 days associated with worsening mental status. History is obtained from brother who is present at bedside. Over the last week patient had gradual worsening shortness of breath, associated with nonproductive cough for which she presented on Wednesday to [place] emergency department. She was given lasix, breathing treatment and patient left home. Over the last 2 days patient had gradual worsening in her condition, being more sleepy than usual and with worsening shortness of breath, which prompted ED presentation. On ED arrival, patient was lethargic, arousable. Blood gas done showed significant hypercapnia. ED attending discussed with brother present at bedside about intubation and mechanical ventilation and brother expressed that based on patient's prior wishes she would not want, therefore patient was placed on BiPAP and [facility] was consulted for ICU admission. Patient was seen in ED, lethargic, arousable, following some commands, on BiPAP. Brother present at bedside providing history. Of note, patient was given Lasix, Solu-Medrol, magnesium and bronchodilators. 01/26: Patient seen earlier this morning. No events over the night. Patient remains lethargic, unarousable, on BiPAP. Brother present at bedside. 01/27: Patient is slightly more awake, opens eyes to voice stimuli but does not consistently follow commands. Plan was to withdraw care later today when another sibling comes in town. 01/28: Patient is more awake today, with family around at bedside. Earlier patient took off the BiPAP and she expressed that she does want to focus only on comfort from now. Palliative care discussing about hospice with family. Patient complains of pain all over her whole body. On nonrebreather mask. Pt Condition on Discharge: Deteriorating Discharge Disposition: Hospice/Med Facility Discharge Instructions DIET: Follow Instructions for: Nothing By Mouth Activities you can perform: Continue Bedrest Alex Franklin MD January 28, 2018 14:19
[2018-01-29] MEDS ORDERED: PHARMACY ORDERED LAB ONE (09:45)
== END 2018-01-28 15:49 | disposition hospice, home (50) | DRG 189 ==
LOC: NEPC 16:28 → NEDA 18:01 → NEDH 22:06 → HIMW 01-26 00:55
PROVIDERS: ADMIT Internal Medicine Critical Care Medicine; ATTEND Internal Medicine Critical Care Medicine
DX: J96.21 Acute and chronic respiratory failure with hypoxia (principal); G93.40 Encephalopathy, unspecified; Z99.81 Dependence on supplemental oxygen; I50.9 Heart failure, unspecified; I11.0 Hypertensive heart disease with heart failure; J44.9 Chronic obstructive pulmonary disease, unspecified; D86.9 Sarcoidosis, unspecified; E78.5 Hyperlipidemia, unspecified; J96.22 Acute and chronic respiratory failure with hypercapnia; Z66 Do not resuscitate; Z79.51 Long term (current) use of inhaled steroids; Z79.52 Long term (current) use of systemic steroids; Z79.899 Other long term (current) drug therapy; Z51.5 Encounter for palliative care
CPT/HCPCS: 36600; 71045; 80053; 81001; 82550; 82805; 82948; 83735; 83880; 84100; 84484; 85025; 85610; 85730; 87040; 87086; 87641; 93005; 94002; 94003; 94640; 94664; 96374; 96375; J1644; J1940; J2270; J2405; J2543; J2930; J3370; J3475; J7040; J7050; J7613